=== PATIENT | female | born 1990 | race Two or more races ===

== ENCOUNTER 2018-05-09 20:44 | Emergency (ER) | payer OTHER ==
[~2018-05-09] VITALS: Ht 160 cm; Wt 49.9 kg
[~2018-05-09 20:44] MED LIST: LATUDA80 MG PO
--- NOTE | 2018-05-09 20:46 | Emergency Room Report ---
History of Present Illness General Chief Complaint: General Complaint Source: Patient Present Illness HPI Patient is a 28-year-old female presented after increased anxiety. Patient reports having a prior history of bipolar disorder. She reports having increased anxiety. She states she takes limited irregularly. She reports taking intermittently Adderall. She denies any fever or chest discomfort. She reports having symptoms of symptoms in the past. Allergies: Coded Allergies: No Known Allergies (Unverified , 05/09/18) Patient History Last Menstrual Period: 04/09/2018 Now: No : 1 Para: 0 Reviewed Nursing Documentation: PMH: Agreed; PSxH: Agreed Nursing Documentation-PMH Past Medical History: No History, Except For History Of Psychiatric Problem: Yes - anxiety, bipolar Review of Systems All Other Systems: negative except mentioned in HPI Physical Exam Vital Signs Date Time Temp Pulse Resp B/P (MAP) Pulse Ox O2 Delivery O2 Flow Rate FiO2 05/09/18 20:37 97.9 80 16 127/88 100 Room Air General Appearance: well appearing, no apparent distress, alert, GCS 15 Head: normocephalic, atraumatic ENT: hearing grossly normal, normal voice Neck: full range of motion, supple Respiratory: no respiratory distress, speaking full sentences Gastrointestinal: normal inspection, normal bowel sounds, non tender, soft, no mass Musculoskeletal: normal inspection, no calf tenderness Neurologic: normal inspection, alert, oriented x3, responsive, council member III-XII nml as tested, motor strength/tone normal, normal gait, other - anxious Psychiatric: judgement/insight normal, memory normal, no suicidal/homicidal ideation, depressed affect Skin: no rash Medical Decision Making Diagnostic Impression: Primary Impression: Anxiety ER Course Patient presented for increased anxiety. Differential diagnosis included was not limited to anxiety, hyperthyroidism, hypoglycemia, substance abuse, anemia among others. Patient has a benign exam and does not appear to require any further imaging or laboratory testing at this time. The urinalysis and urine test were ordered. The patient does not appear to have any acute psychiatric history of this time I requiring inpatient management. Patient was given medications for anxiety while in the emergency department. The patient has a psychiatrist to follow-up with for further medications as needed.The patient advised contact her psychiatrist for further evaluation and to return if she began having any suicidal thoughts or thoughts of harming others or other concerns. Last Vital Signs Date Time Temp Pulse Resp B/P (MAP) Pulse Ox O2 Delivery O2 Flow Rate FiO2 05/09/18 20:37 97.9 80 16 127/88 100 Room Air Status: improved Disposition: HOME, SELF-CARE Condition: Stable Ruben Bender MD May 09, 2018 20:46
[2018-05-09] MEDS ORDERED: LORazepam 1mg tab ORAL ONE (21:00)
[2018-05-09 22:01] VITALS: BP 114/63
[2018-05-09 22:06] VITALS: BP 114/63
== END 2018-05-09 22:08 | disposition home or self-care (01) ==
LOC: EDBD 20:44 → EMR 21:12
DX: F41.9 Anxiety disorder, unspecified (principal); F31.9 Bipolar disorder, unspecified
CPT/HCPCS: 81025; 99283

== ENCOUNTER 2018-06-07 18:12 | Emergency (ER) | payer OTHER ==
[~2018-06-07] VITALS: Ht 160 cm; Wt 47.6 kg
[2018-06-07 18:28] VITALS: BP 111/73
[2018-06-07] MEDS ORDERED: Ipratropium 0.02% Inh Soln 2.5ml UD HHN ONE (18:45)
[2018-06-07] MEDS ORDERED: Albuterol ud Inhalation HHN ONE (18:45)
[2018-06-07] MEDS ORDERED: ALBUTEROL SULF8.5 GM INH (19:16)
[2018-06-07] MEDS ORDERED: PREDNISONE20 MG ORAL (19:16)
[2018-06-07 19:27] VITALS: BP_SYST 111; BP_SYST 112; BP_DIAS 73; BP_DIAS 78
--- NOTE | 2018-06-07 20:11 | Emergency Room Report ---
History of Present Illness General Chief Complaint: General Complaint Source: Patient Present Illness HPI 28-year-old female presents ED complaining of difficulty breathing 2 days. States her chest feels tight. States that she used a hookah 2 days ago and states that drugs may been put in the hookah. States she felt initially "high" and states that yesterday she felt like she was withdrawing. She is concerned that she may from the drugs. Denies chest pain. Denies fevers or chills. Denies cough. No other aggravating relieving factors. Denies any other associated symptoms Allergies: Coded Allergies: No Known Allergies (Unverified , 05/09/18) Patient History Past Medical History: psych hx Past Surgical History: none Pertinent Family History: none Social History: Denies: smoking, alcohol use, drug use Last Menstrual Period: 04/27/2018 Now: No Immunizations: UTD Reviewed Nursing Documentation: PMH: Agreed; PSxH: Agreed Nursing Documentation-PMH Past Medical History: No History, Except For History Of Psychiatric Problem: Yes - bipolar, ADD Review of Systems All Other Systems: negative except mentioned in HPI Physical Exam Vital Signs Date Time Temp Pulse Resp B/P (MAP) Pulse Ox O2 Delivery O2 Flow Rate FiO2 06/07/18 18:15 98.2 82 18 111/73 96 Room Air 06/07/18 18:50 21 Sp02 EP Interpretation: reviewed, normal General Appearance: no apparent distress, alert, GCS 15, non-toxic Head: normocephalic Eyes: bilateral eye normal inspection, bilateral eye PERRL ENT: hearing grossly normal, normal pharynx, no angioedema, normal voice Neck: normal inspection Respiratory: decreased breath sounds, wheezing Cardiovascular #1: regular rate, rhythm, no edema Gastrointestinal: normal inspection Rectal: deferred Genitourinary: normal inspection Musculoskeletal: back normal, gait/station normal, normal range of motion, non- tender Neurologic: alert, oriented x3, responsive, motor strength/tone normal, sensory intact, speech normal Psychiatric: anxious Skin: normal inspection Lymphatic: normal inspection Medical Decision Making Diagnostic Impression: Primary Impression: Bronchitis ER Course Hospital Course 28-year-old female presents to ED complaining of chest tightness after smoking hookah Differential diagnoses include: URI, bronchitis, asthma/COPD, pneumonia Clinical course Patient placed on stretcher. After initial history and physical I ordered prednisone and nebulizer treatment. Upon reassessment patient states her breathing has improved. Improved breath sounds on exam. Consistent with bronchitis. Safe for discharge. We'll prescribe inhaler and steroids. Diagnosis - bronchitis Stable and discharged home with prescriptions for Rx prednisone, albuterol. Instructed to followup with PMD. Return to ED if symptoms recur or worsen Last Vital Signs Date Time Temp Pulse Resp B/P (MAP) Pulse Ox O2 Delivery O2 Flow Rate FiO2 06/07/18 19:27 98.2 68 20 111/73 99 Room Air 21 Status: improved Disposition: HOME, SELF-CARE Condition: Stable Scripts Prednisone* (PREDNISONE*) 20 Mg Tablet 40 MG ORAL DAILY, #10 TAB Prov: Bart Simental MD 06/07/18 Albuterol Sulfate* (ALBUTEROL SULFATE MDI*) 8.5 Gm Hfa.aer.ad 2 PUFF INH Q6H, #1 EA 0 Refills Prov: Bart Simental MD 06/07/18 Referrals: [facility],REFERRING (PCP) Patient Instructions: Acute Bronchitis, [id number] Bart Simental MD Jun 07, 2018 20:11
== END 2018-06-07 19:27 | disposition home or self-care (01) ==
LOC: EMR 18:52
DX: J40 Bronchitis, not specified as acute or chronic (principal); R07.89 Other chest pain; F98.8 Other specified behavioral and emotional disorders with onset usually occurring in childhood and adolescence
CPT/HCPCS: 94640; 94664; 99284

== ENCOUNTER 2018-12-24 02:52 | Inpatient (IN) | payer OTHER ==
[~2018-12-24] VITALS: Ht 157.5 cm; Wt 54.4 kg
[2018-12-24] VITALS (7 sets, daily range): BP systolic 107–149; BP diastolic 70–84
[~2018-12-24 02:52] MED LIST changes: +ALBUTEROL SULF8.5 GM INH; +PREDNISONE20 MG ORAL
--- NOTE | 2018-12-24 02:56 | NUR ---
ED Nurse Note: Pt was BIBA from home, c/o drug over dose, According to EMS, pt took 10n pills of Adderall and just wanted to calm herself down . Pt is A/O X 4. Hr 114 at this time. waiting for orders.
[2018-12-24] MEDS ORDERED: LORazepam Inj 2mg/ml 1ml IV ONE ×2 (03:00→07:30)
--- NOTE | 2018-12-24 03:01 | Emergency Room Report ---
History of Present Illness General Source: Patient Present Illness HPI Patient is a 28-year-old female brought in by EMS after increased agitation. Patient reports having overdosed on Adderall as well as crystal meth. She states this happened earlier in the day. Patient denies any other complaints other than anxiety. She states that she is "barely breathing". Patient was brought in by [facility]. She denies any or allergies to medications Allergies: Coded Allergies: No Known Allergies (Unverified , 05/09/18) Patient History Past Medical History: see triage record Reviewed Nursing Documentation: PMH: Agreed; PSxH: Agreed Review of Systems All Other Systems: negative except mentioned in HPI Physical Exam Sp02 EP Interpretation: reviewed, normal General Appearance: normal inspection, well appearing, no apparent distress, alert, GCS 15 Head: atraumatic ENT: normal ENT inspection, hearing grossly normal, normal voice Neck: normal inspection, full range of motion, supple, no bony tend Respiratory: normal inspection, lungs clear, normal breath sounds, no respiratory distress, no retraction, no wheezing Cardiovascular #1: regular rate, rhythm, no edema Gastrointestinal: normal inspection, normal bowel sounds, non tender, soft, no guarding, no hernia Genitourinary: no CVA tenderness Musculoskeletal: normal inspection, back normal, normal range of motion Neurologic: normal inspection, alert, oriented x3, responsive, bead wire taper III-XII nml as tested, motor strength/tone normal, speech normal, other - motor agitation Psychiatric: mood/affect normal, anxious Skin: normal inspection, normal color, no rash Medical Decision Making Diagnostic Impression: Primary Impression: Substance abuse Additional Impressions: Overdose Hyponatremia ER Course Patient presented for increased agitation. Differential diagnosis include was not limited to substance abuse, anxiety, alcohol withdrawal among others. Because of complexity of patient's case laboratory testing and imaging studies were ordered. Patient was noted to be markedly agitated. Reportedly she had overdosed on Adderall. Patient does also report that she did crystal meth earlier in the day. Patient reports having prior history of anxiety. She was given IV Ativan. Poison control was contacted for advised management.Patient was noted to be hyponatremic on laboratory testing. She was given IV antiemetics after episode of vomiting. Dr. Tuan Marquez was contacted for inpatient management. Dr. Chávez was contacted for psychiatric consult. Labs Test 12/24/18 03:26 12/24/18 06:30 White Blood Count 9.1 K/UL (4.8-10.8) Red Blood Count 4.68 M/UL (4.20-5.40) Hemoglobin 14.0 G/DL (12.0-16.0) Hematocrit 39.4 % (37.0-47.0) Mean Corpuscular Volume 84 FL (80-99) Mean Corpuscular Hemoglobin 29.9 PG (27.0-31.0) Mean Corpuscular Hemoglobin Concent 35.5 G/DL (32.0-36.0) Red Cell Distribution Width 12.0 % (11.6-14.8) Platelet Count 266 K/UL (150-450) Mean Platelet Volume 7.8 FL (6.5-10.1) Neutrophils (%) (Auto) 84.2 % (45.0-75.0) Lymphocytes (%) (Auto) 9.8 % (20.0-45.0) Monocytes (%) (Auto) 5.5 % (1.0-10.0) Eosinophils (%) (Auto) 0.1 % (0.0-3.0) Basophils (%) (Auto) 0.5 % (0.0-2.0) Sodium Level 123 MMOL/L (136-145) Potassium Level 3.3 MMOL/L (3.5-5.1) Chloride Level 86 MMOL/L (98-107) Carbon Dioxide Level 23 MMOL/L (21-32) Anion Gap 14 mmol/L (5-15) Blood Urea Nitrogen 3 mg/dL (7-18) Creatinine 0.8 MG/DL (0.55-1.30) Estimat Glomerular Filtration Rate > 60 mL/min (>60) Glucose Level 125 MG/DL (74-106) Calcium Level 8.8 MG/DL (8.5-10.1) Total Bilirubin 0.5 MG/DL (0.2-1.0) Aspartate Amino Transf (AST/SGOT) 22 U/L (15-37) Alanine Aminotransferase (ALT/SGPT) 16 U/L (12-78) Alkaline Phosphatase 63 U/L (46-116) Total Protein 7.2 G/DL (6.4-8.2) Albumin 4.3 G/DL (3.4-5.0) Globulin 2.9 g/dL Albumin/Globulin Ratio 1.5 (1.0-2.7) Salicylates Level 1.3 ug/mL (2.8-20) Acetaminophen Level < 2 MCG/ML (10-30) Serum Alcohol < 3 mg/dL Urine HCG, Qualitative Negative (NEGATIVE) Status: improved Disposition: ADMITTED INPATIENT Condition: Stable Ruben Bender MD Dec 24, 2018 03:01
--- NOTE | 2018-12-24 03:07 | NUR ---
ED Nurse Note: Spoke with Tang at Poison Control: Ampehtamine/stimulant response - hypertension, tachycardia, psychotic episodes. Worsening symptoms: Cardiotoxicicty; seizures - can treat with benzos. Pt needs to be monitored for a minimum of 12 hours.
--- NOTE | 2018-12-24 03:10 | NUR ---
ED Nurse Note: Pt was moved to Bed 2# for base brander. Endorsed to Adrianna /RN for continue care.
[2018-12-24 03:46] LABS: BASOPHILS % (AUTO) 0.5 % (0.0-2.0); EOSINOPHILS % (AUTO) 0.1 % (0.0-3.0); HEMATOCRIT 39.4 % (37.0-47.0); LYMPHOCYTES % (AUTO) 9.8 % (20.0-45.0); MEAN CORPUSCULAR VOLUME 84 FL (80-99); MONOCYTES % (AUTO) 5.5 % (1.0-10.0); NEUTROPHILS % (AUTO) 84.2 % (45.0-75.0); PLATELET COUNT 266 K/UL (150-450); RED BLOOD COUNT 4.68 M/UL (4.20-5.40); WHITE BLOOD COUNT 9.1 K/UL (4.8-10.8)
[2018-12-24 04:10] LABS: ANION GAP 14 mmol/L (5-15); BLOOD UREA NITROGEN 3 mg/dL (7-18); CALCIUM 8.8 MG/DL (8.5-10.1); CARBON DIOXIDE 23 MMOL/L (21-32); CHLORIDE 86 MMOL/L (98-107); CREATININE 0.8 MG/DL (0.55-1.30); POTASSIUM 3.3 MMOL/L (3.5-5.1); SODIUM 123 MMOL/L (136-145)
[2018-12-24 04:29] LABS: ALANINE AMINOTRANSFERASE 16 U/L (12-78); ALBUMIN 4.3 G/DL (3.4-5.0); ALBUMIN/GLOBULIN RATIO 1.5 (1.0-2.7); ALKALINE PHOSPHATASE 63 U/L (46-116); ASPARTATE AMINO TRANSFERASE 22 U/L (15-37); BILIRUBIN,TOTAL 0.5 MG/DL (0.2-1.0)
--- NOTE | 2018-12-24 05:02 | NUR ---
ED Nurse Note: Pt vomitted clear liquids, Dr Bender aware
[2018-12-24] MEDS ORDERED: NKM (06:40)
[2018-12-24 06:45] LABS: APPEARANCE,URINE CLEAR; BILIRUBIN, URINE NEGATIVE (NEGATIVE); COLOR,URINE PALE YELLOW; GLUCOSE, URINE (UA) NEGATIVE (NEGATIVE); KETONES,URINE 3+ (NEGATIVE); LEUKOCYTE ESTERASE ,URINE 3+ (NEGATIVE); NITRITE,URINE NEGATIVE (NEGATIVE); PH,URINE 8 (4.5-8.0); PROTEIN,URINE NEGATIVE (NEGATIVE); UROBILINOGEN,URINE NORMAL MG/DL (0.0-1.0)
--- NOTE | 2018-12-24 07:13 | NUR ---
HAND-OFF: Report given to FLORENCIA Correa.
--- NOTE | 2018-12-24 07:38 | NUR ---
ED Nurse Note: pt care assummed. pt a/ox4 states she feels like her heart is racing. md aware and repeat dose of ativan given. pt aware to be admitted for further observation. NSR no ectopy noted on monitor pt without seizure activity. pt given reassurance and plan of care when she relates anxiety. sitter at bs. pt denies SI/Hi.
[2018-12-24] MEDS ORDERED: CABERGOLINE0.5 MG PO (07:58)
[2018-12-24] MEDS ORDERED: TRILEPTAL600 MG PO (07:58)
[2018-12-24] MEDS ORDERED: ADDERAL20 MG ORAL (07:58)
[2018-12-24] MEDS ORDERED: VYVANSE70 MG ORAL (07:58)
--- NOTE | 2018-12-24 07:58 | NUR ---
ED Nurse Note: pt belongings list done by rn. pt noted to have 4 at home medications in her purse. removed from pt and inventoried on pharmacy hold bag and added to pt med reconcilliation. pt aware meds removed from her and sent to pharmacy bag receipt [id number].
--- NOTE | 2018-12-24 08:14 | NUR ---
ED Nurse Note: report given to 2east. awaiting pt. pt assisted to brp with sitter assisting her. denies dizziness.
--- NOTE | 2018-12-24 12:15 | History and Physical Report ---
DATE OF ADMISSION: 12/24/2018 REASON FOR ADMISSION: Unintentional overdose. HISTORY OF PRESENT ILLNESS: The patient is a 28-year-old female, reportedly overdose on Adderall as well as crystal meth. The patient denies any other complaints. She was noted to be hyponatremic. The patient was somewhat agitated, brought in by ambulance, overall stable in the emergency room and requires observation. PAST MEDICAL HISTORY: Essentially negative. MEDICATIONS: As above. SOCIAL HISTORY: Nonsmoker. Not working currently. REVIEW OF SYSTEMS: Otherwise negative. PHYSICAL EXAMINATION: GENERAL: A well-developed female, otherwise comfortable. VITAL SIGNS: Essentially stable. Heart rate was up to 112, now 87. HEENT: Negative. NECK: Supple. LUNGS: Clear. CARDIAC: S1 and S2. Regular rate and rhythm. ABDOMEN: Soft, nontender, nondistended. EXTREMITIES: No edema. NEUROLOGIC: Nonfocal. LABORATORY DATA: Reviewed, notable for sodium 123, potassium 3.3. Urine toxicology screen positive for amphetamines. IMPRESSION: Reported unintentional Adderall overdose as well as crystal meth use, polysubstance abuse, hyponatremia. RECOMMENDATIONS: Normal saline with hydration. Psychiatric clearance. Follow up sodium levels and discharge once improved. Tuan Marquez M.D. DR: SHEA JOB#: [id number] CC:
--- NOTE | 2018-12-24 12:17 | NUR ---
CASE MANAGEMENT:REVIEW 28 YR OLD FEMALE BIBA FROM HOME CC; TOOK 10 ADDERALL PILLS. OVERDOSE SI: HYPONATREMIA. OVERDOSE 98.0 112 18 149/84 99% ON RA NA-123 K-3.3 URINE(+) AMPHETAMINES IS: 500CC NS BOLUS IV ATIVAN 1L NS BOLUS : TO TELEMETRY INTERQUAL CRITERIA MET
--- NOTE | 2018-12-24 15:57 | NUR ---
*-* NO INSURANCE INFORMATION IN THE BAR TO SEND CLINICALS *-*
[2018-12-24] MEDS: LORazepam 1mg tab ORAL PRN (18:07)
--- NOTE | 2018-12-24 18:10 | NUR ---
NURSE NOTES: IV found next to patient. No bleeding from IV site. Site cleaned and covered. Will attempt IV after Pt is calm.
--- NOTE | 2018-12-24 19:50 | NUR ---
OBTAINED REPORT FROM BRI DON .
--- NOTE | 2018-12-24 20:00 | NUR ---
HAND-OFF: Report given to FLORENCIA Oliva. Patient in stable condition.
[2018-12-25] VITALS: BP 110/74
--- NOTE | 2018-12-25 01:30 | Consultation ---
DATE OF CONSULTATION: 12/24/2018 CONSULTING PHYSICIAN: Xiomara Chávez M.D. REFERRING PHYSICIAN: Tuan Marquez M.D. HISTORY OF PRESENT ILLNESS: This is a 28-year-old female with a history of Adderall dependence, anxiety, and depression, who has been admitted to the hospital after she overdosed on Adderall as well as crystal meth. The patient has been mixing the drugs with alcohol and apparently during the evaluation, the patient was . She had psychomotor agitation, irritable, and at some point, became angry when I was asking about her psychiatrist and his information. The patient denied any suicidal thoughts. The patient stated that this was an accidental overdose. The patient stated that she has been on Adderall for years. PAST PSYCHIATRIC HISTORY: Anxiety and depression. PAST MEDICAL HISTORY: Nonsignificant. ALLERGIES: No known drug allergies. SUBSTANCE USE HISTORY: According to the record, methamphetamine and Adderall and alcohol abuse. MENTAL STATUS EXAMINATION: The patient is alert, oriented times self, place, situation, and date. The patient had psychomotor agitation and involuntary contraction of her face and extremities. Mood was angry. Affect was constricted with congruent mood. Thought process was concrete. Thought content, no suicidal or homicidal ideations. No auditory or visual hallucinations. Insight and judgment is poor. ASSESSMENT: [place] I Methamphetamine dependence. [place] II Deferred. [place] III As above. [place] IV Low. [place] V 50 PLAN: 1. The patient is not an imminent danger to self or others. 2. Contacted and left a message for her psychiatrist at [facility], . He did not return my phone call. The patient was provided with doctor's phone number. 3. The patient was started on Ativan p.r.n. 4. The patient may be discharged after medically cleared. Xiomara Chváez M.D. DR: FREIDA JOB#: [id number] CC:
[2018-12-25 04:00] VITALS: BP 104/61
[2018-12-25 06:35] LABS: BASOPHILS % (AUTO) 1.7 % (0.0-2.0); EOSINOPHILS % (AUTO) 0.9 % (0.0-3.0); HEMATOCRIT 39.2 % (37.0-47.0); HEMOGLOBIN 13.5 G/DL (12.0-16.0); MEAN CORPUSCULAR VOLUME 86 FL (80-99); MONOCYTES % (AUTO) 8.2 % (1.0-10.0); NEUTROPHILS % (AUTO) 55.1 % (45.0-75.0); PLATELET COUNT 269 K/UL (150-450); RED BLOOD COUNT 4.55 M/UL (4.20-5.40); RED CELL DISTRIBUTION WIDTH 12.9 % (11.6-14.8); WHITE BLOOD COUNT 5.3 K/UL (4.8-10.8)
--- NOTE | 2018-12-25 07:10 | NUR ---
HAND-OFF: REPORT GIVEN TO HERNANDEZ DON. PT RESTING COMFORTABLY IN BED FREE FROM APPARENT DISTRESS.
[2018-12-25 07:13] LABS: ALANINE AMINOTRANSFERASE 15 U/L (12-78); ALBUMIN 3.9 G/DL (3.4-5.0); ALBUMIN/GLOBULIN RATIO 1.4 (1.0-2.7); ALKALINE PHOSPHATASE 55 U/L (46-116); ANION GAP 11 mmol/L (5-15); ASPARTATE AMINO TRANSFERASE 22 U/L (15-37); BILIRUBIN,TOTAL 0.4 MG/DL (0.2-1.0); BLOOD UREA NITROGEN 3 mg/dL (7-18); CALCIUM 8.7 MG/DL (8.5-10.1); CARBON DIOXIDE 21 MMOL/L (21-32); CHLORIDE 102 MMOL/L (98-107); CREATININE 0.6 MG/DL (0.55-1.30); POTASSIUM 3.6 MMOL/L (3.5-5.1); SODIUM 134 MMOL/L (136-145)
--- NOTE | 2018-12-25 07:44 | NUR ---
NURSE NOTES: Received report from FLORENCIA Oliva. Pt in bed, awake, talkative, complaining of nausea, discussed giving Zofran and provided pt with Saltine crackers, pt A/Ox4, bed in lowest position, call light within reach.
--- NOTE | 2018-12-25 08:28 | NUR ---
NURSE NOTES: 0800: Administered Zofran to pt as she states she is feeling "nauseous" RN asked pt about feelings of anxiety. pt stated "I dont feel anxious now, I am okay." Administered scheduled morning medication. 08: FLORENCIA Mancia notified primary RN pt was outside her room stating she needs to get going. 08: RN in pt's room. Pt states " I need to get going, I am feeling fine. I have been here for a few days now and I am feeling better." RN discussed plan of care with pt and will notify Dr. Marquez about pt asking to go home. Pt agreed to wait for Dr. Marquez to order DC. pt asked about getting anti-anxiety medications prescribed at discharged. RN notified Dr. Chávez of pt's request for DC meds. 829: Dr. Chávez stated "no benzodiazepine for her upon DC. PT needs to see her psychiatrist" Pt again out of room stating "I just want to be discharged and go home. RN Notified Dr. Marquez of pt's request for discharge.
[2018-12-25] MEDS: LORazepam 1mg tab ORAL PRN (09:36)
--- NOTE | 2018-12-25 10:41 | NUR ---
Social Work This SW received a consult due to substance abuse. This SW met with patient who explains she lives alone while her mother (Gaby Mckeon: [phone]) is assisting her financially (does not work, nor has applied for disability). Patient admitted to Meth abuse prior to this admission, stating "I only use it seldom." Patient denied any suicidal ideations, while admitting to a history of anxiety (Nursing reported patient has history of Bipolar Disorder). Patient is willing to follow up with a Psychiatrist outpatient (resources provided). This SW provided education regarding the negative effects of substance abuse (Meth) and encouraged support groups, as needed. Patient plans to discharge today and has been cleared by Psychiatry. No other needs or concerns; patient requested a cab voucher to home, does not want her mother notified.
--- NOTE | 2018-12-25 10:47 | NUR ---
NURSE NOTES: Reviewed all discharge paperwork with patient. Pt signed all discharge paperwork and belongings list. Returned home medications to patient that were stored in pharmacy. Pt was provided mental health resource information by park worker. Pt was provided phone numbers for taxi cabs and will contact for transportation home. IV removed intact, telemetry box removed. RN discussed at length the importance and Dr. Chávez's recommendation of seeing psychiatrist as soon as possible. Pt states "i dont see him until next month, he is really expensive, like $250." RN discussed importance of seeing psychiatrist as soon as possible due to recent overdose. Pt verbalized understanding.
--- NOTE | 2018-12-25 11:07 | NUR ---
NURSE NOTES: Pt discharged with all belongings and home medications. Pt ambulatory and medically and psychiatrically stable for discharge. ID band removed.
--- NOTE | 2018-12-25 14:12 | NUR ---
*-* INSURANCE *-* ALL CLINICALS AND REVIEWS HAVE BEEN FAXED TO: [employer] NO MGR ASSIGNED AT THIS TIME PLEASE FAX THE REVIEW/CLINICAL P- [phone] F- [phone]....REVIEW & CLINICAL
--- NOTE | 2018-12-26 00:30 | Progress Note ---
DATE: 12/25/2018 SUBJECTIVE: The patient is doing much better. Less anxiety. The patient is not suicidal or homicidal. The patient will be following up with her psychiatrist outside of the hospital. The patient has a history of dependence to methamphetamine. MENTAL STATUS EXAMINATION: The patient is alert and oriented times self, place, and situation. Mood is anxious. Affect is constricted. Congruent mood. Thought process is concrete. Thought content, no suicidal or homicidal ideations. ASSESSMENT: Depression. PLAN: 1. We will continue current medications. 2. Provide the patient with reality orientation and supportive therapy. 3. The patient is not an imminent danger to self or others. Xiomara Chávez M.D. DR: SHWETHA JOB#: [id number] CC:
--- NOTE | 2018-12-26 22:02 | Discharge Summary ---
Discharge Summary Discharge Summary _ DATE OF ADMISSION: 12/24/2018 DATE OF DISCHARGE: 12/25/2018 DISCHARGED BY: Dr. Marquez REASON FOR ADMISSION: 28 years old female with essentially negative past medical history, was brought by business rules analyst with increased agitation. Patient reported having overdose on Adderall and crystal meth, which happened earlier that day. Patient denied other complaints, except anxiety. Vital signs revealed tachycardia 112, blood pressure 149/84, pulse oximetry was stable on room air, no fever. Upon evaluation laboratory work-up revealed sodium 123, potassium 3.3. No leukocytosis. Urine toxicology screen was positive for amphetamine. Serum alcohol less than 3 Tylenol and salicylate levels negative. Urinalysis revealed +3 ketones, no evidence of UTI. Urine test was negative. Patient admitted for hyponatremia and unintentional Adderall and crystal meth overdose . CONSULTANTS: psychiatranuj Villarreal HOSPITAL COURSE: Patient admitted and started on IV hydration with normal saline. The next day sodium 134, potassium 3.6. Vital signs stabilized, initial tachycardia resolved Psychiatrist seen and evaluated patient. Reality orientation and supportive therapy provided. Per psychiatrist, patient was not at imminent danger to self or others and can be discharged when medically stable. Patient counseled on abstinence from illicit street drugs. Patient clinically stabilized and was ready for discharge home. Due to rapid and unexpected improvement in patient condition, patient was discharged in 1 day. FINAL DIAGNOSES: Acute hyponatremia -resolved Unintentional Adderall overdose Methamphetamine dependence Polysubstance abuse DISCHARGE MEDICATIONS: See Medication Reconciliation list. DISCHARGE INSTRUCTIONS: Patient was discharged home. Follow up with primary care provider in one week. I have been assigned to dictate discharge summary for this account. I was not involved in the patient's management. Jo Medrano NP Dec 26, 2018 22:02
--- NOTE | 2018-12-28 14:08 | NUR ---
*-* INSURANCE *-* DISCHARGE SUMMARY HAVE BEEN FAXED TO: [facility] NO MGR ASSIGNED AT THIS TIME PLEASE FAX THE REVIEW/CLINICAL P- [phone] F- [phone]....REVIEW & CLINICAL
== END 2018-12-25 11:27 | disposition home or self-care (01) | DRG 812 ==
LOC: EDBD 02:52 → EMR 03:27 → 2E 05:15 → EDBEDREQ 05:38
DX: T43.621A Poisoning by amphetamines, accidental (unintentional), initial encounter (principal); E87.1 Hypo-osmolality and hyponatremia; F15.20 Other stimulant dependence, uncomplicated; F19.10 Other psychoactive substance abuse, uncomplicated; F41.9 Anxiety disorder, unspecified; F32.9 Major depressive disorder, single episode, unspecified
CPT/HCPCS: 36415; 80053; 80307; 80329; 81003; 81025; 85025; 87086; 96361; 96374; 96376; 99284; J2405; J8499

== ENCOUNTER 2018-12-26 15:08 | Emergency (ER) | payer OTHER ==
[~2018-12-26] VITALS: Ht 157.5 cm; Wt 54.4 kg
[~2018-12-26 15:08] MED LIST changes: +ADDERAL20 MG ORAL; +CABERGOLINE0.5 MG PO; +NKM; +TRILEPTAL600 MG PO; +VYVANSE70 MG ORAL
[2018-12-26 15:12] VITALS: BP 111/79
--- NOTE | 2018-12-26 15:14 | NUR ---
ED Nurse Note: Pt came in for panick attack since today. No SI/HI. AOx4, VSS ananda. Will cont to monitor.
[2018-12-26] MEDS ORDERED: LORazepam 1mg tab ORAL ONE (15:30)
[2018-12-26 16:15] LABS: BASOPHILS % (AUTO) 3.2 % (0.0-2.0); EOSINOPHILS % (AUTO) 0.8 % (0.0-3.0); HEMATOCRIT 41.4 % (37.0-47.0); HEMOGLOBIN 14.5 G/DL (12.0-16.0); LYMPHOCYTES % (AUTO) 36.4 % (20.0-45.0); MEAN CORPUSCULAR VOLUME 84 FL (80-99); MONOCYTES % (AUTO) 7.8 % (1.0-10.0); NEUTROPHILS % (AUTO) 51.7 % (45.0-75.0); PLATELET COUNT 167 K/UL (150-450); RED BLOOD COUNT 4.93 M/UL (4.20-5.40); RED CELL DISTRIBUTION WIDTH 12.4 % (11.6-14.8)
[2018-12-26 16:19] LABS: ANION GAP 13 mmol/L (5-15); BLOOD UREA NITROGEN 4 mg/dL (7-18); CALCIUM 9.5 MG/DL (8.5-10.1); CARBON DIOXIDE 22 MMOL/L (21-32); CHLORIDE 101 MMOL/L (98-107); CREATININE 0.6 MG/DL (0.55-1.30); POTASSIUM 3.9 MMOL/L (3.5-5.1); SODIUM 136 MMOL/L (136-145)
[2018-12-26 16:24] LABS: ALANINE AMINOTRANSFERASE 17 U/L (12-78); ALKALINE PHOSPHATASE 65 U/L (46-116); ASPARTATE AMINO TRANSFERASE 36 U/L (15-37); BILIRUBIN,TOTAL 0.4 MG/DL (0.2-1.0); CREATINE KINASE 167 U/L (26-308)
--- NOTE | 2018-12-26 16:24 | Emergency Room Report ---
History of Present Illness General Chief Complaint: General Complaint Source: Patient Present Illness HPI 28-year-old female with history of ADHD and anxiety brought in by the paramedics complaining of panic attack x1 day. Patient reports that she was sitting at home having an argument with her parents and she started thinking about hurting herself however no plan. Patient denies any suicidal ideation or homicidal ideation at this point she also reports that she has not had any sleep in the past 48 hours. Patient has excessive jerking movements in the mouth and hands. Denies any drug use however when asked twice she does admit to taking methamphetamine. She has an extensive history on CURES of taking Vyvanse and amphetamine. Patient's last psychiatric appointment was a month ago and reports that her psychiatrist never gives her anything for anxiety. She has been at [facility] before for anxiety and medication overdose. Patient denies any other drug use, complains of palpitation, denies chest pain shortness of breath. Patient kept insisting on getting an Ativan and walking out of here into a voluntary facility for psychiatric care. Patient refuses to be tested for possible abnormalities however when convinced that we need to examine her she agrees. She then runs to the restroom urinates and does not give any urine sample I confronted her later and asked her that she needs to give us another urine sample no abdomen will be administered unless she allows for medical examination and cooperation as she is not in the right state of mind and judgment. She goes in to the restroom the second time 10 minutes later after the first time takes her water cup with her inner and comes back immediately with a container full of diluted urine. Possible mixing of the urine with water. She was given an order for NS bolus refuses to have IV access. Drinks more water and do some walks and with the nurse to the bathroom and gives more urine sample. Denies visual and auditory hallucination, mood changes, and all other associated symptoms. She kept saying that she has no one here with her but she will call over after she has given Ativan. Allergies: Coded Allergies: No Known Allergies (Unverified , 05/09/18) Patient History Past Medical History: see triage record Past Surgical History: unable to obtain Pertinent Family History: none Social History: Reports: drug use - meth Last Menstrual Period: 11/2018 Now: No Immunizations: UTD Reviewed Nursing Documentation: PMH: Agreed; PSxH: Agreed Nursing Documentation-PM Past Medical History: No Stated History Hx Cardiac Problems: No Hx Cancer: No Hx Gastrointestinal Problems: No Hx Neurological Problems: No Review of Systems All Other Systems: negative except mentioned in HPI Physical Exam Vital Signs Date Time Temp Pulse Resp B/P (MAP) Pulse Ox O2 Delivery O2 Flow Rate FiO2 12/26/18 15:04 98.1 90 18 108/74 (85) 100 Room Air Sp02 EP Interpretation: reviewed, normal General Appearance: mild distress, thin, other - Excess jerking movements and disheveled Head: normocephalic, atraumatic Eyes: left eye abnormal pupil ENT: normal ENT inspection, hearing grossly normal, normal pharynx, no angioedema Neck: normal inspection, full range of motion, supple Respiratory: normal inspection, chest non-tender, lungs clear, no retraction, no wheezing Cardiovascular #1: normal inspection, regular rate, rhythm, no murmur, normal capillary refill Cardiovascular #2: 2+ radial (R), 2+ radial (L) Gastrointestinal: normal inspection, soft Rectal: deferred Genitourinary: no CVA tenderness Musculoskeletal: normal inspection, back normal Neurologic: normal inspection, alert, oriented x3, responsive Psychiatric: memory normal, no suicidal/homicidal ideation, no delusions, anxious, other - Possible overdose on multiple drugs Suicide Risk Assessment: Suicidal Ideation: No - None at the emergency room Had intent to initiate attempt: No Pt's plan for suicide attempt: No Has means to complete attempt: No Skin: normal inspection, normal color, no rash Lymphatic: normal inspection, no adenopathy Medical Decision Making PA Attestation All my diagnosis and treatment plans were reviewed ad discussed with my supervising physician Dr. Arnett Diagnostic Impression: Primary Impression: Anxiety Additional Impression: Amphetamine abuse ER Course 28-year-old female with history of ADHD and anxiety brought in by the paramedics complaining of panic attack x1 day. Patient reports that she was sitting at home having an argument with her parents and she started thinking about hurting herself however no plan. Patient denies any suicidal ideation or homicidal ideation at this point she also reports that she has not had any sleep in the past 48 hours. Patient has excessive jerking movements in the mouth and hands. Denies any drug use however when asked twice she does admit to taking methamphetamine. She has an extensive history on CURES of taking Vyvanse and amphetamine. Patient's last psychiatric appointment was a month ago and reports that her psychiatrist never gives her anything for anxiety. She has been at [facility] before for anxiety and medication overdose. Patient denies any other drug use, complains of palpitation, denies chest pain shortness of breath. Patient kept insisting on getting an Ativan and walking out of here into a voluntary facility for psychiatric care. Patient refuses to be tested for possible abnormalities however when convinced that we need to examine her she agrees. She then runs to the restroom urinates and does not give any urine sample I confronted her later and asked her that she needs to give us another urine sample no abdomen will be administered unless she allows for medical examination and cooperation as she is not in the right state of mind and judgment. She goes in to the restroom the second time 10 minutes later after the first time takes her water cup with her inner and comes back immediately with a container full of diluted urine. Possible mixing of the urine with water. She was given an order for NS bolus refuses to have IV access. Drinks more water and do some walks and with the nurse to the bathroom and gives more urine sample. Denies visual and auditory hallucination, mood changes, and all other associated symptoms. She kept saying that she has no one here with her but she will call over after she has given Ativan. Ddx considered but are not limited to: generalized anxiety disorder, panic attack, depression with psycotic featurs, bipolar disorder, drug overdose Vital signs: are WNL, pt. is afebrile H&PE are most consistent with: Anxiety secondary to withdrawal from amphetamine , amphetamine abuse ORDERS: CBC, CMP, UA, tox screen, EKG, 0.5 Ativan ED INTERVENTIONS: 0.5 Ativan p.o. DISCHARGE: At this time pt. is stable for d/c to home. Will provide printed patient care instructions, and any necessary prescriptions. Care plan and follow up instructions have been discussed with the patient prior to discharge. Patient stable at time of discharge I gave her a list of free clinics in psychiatric facilities to going to have patient asked to voluntarily walked into the patient had no suicidal ideation at time of discharge laying my nurse was no weakness. Patient wanted more Ativan however explained to her that we cannot do at this point as she needs to have a better management such as SSRIs or SNRIs and since she is using amphetamine she cannot be on a daily dose of Ativan as well. Due to enlargement of her heart. Patient agrees and will leave. Patient has no suicidal or homicidal ideation at time of discharge. pos amphetamine EKG Diagnostic Results Rate: normal Rhythm: NSR ST Segments: no acute changes Last Vital Signs Date Time Temp Pulse Resp B/P (MAP) Pulse Ox O2 Delivery O2 Flow Rate FiO2 12/26/18 15:12 98.1 89 20 111/79 100 Room Air Disposition: HOME, SELF-CARE Condition: Stable Referrals: [facility],REFERRING (PCP) Patient Instructions: Generalized Anxiety Disorder, Stimulant Use Disorder- Amphetamines Additional Instructions: I gave you a list of psychiatric clinics that he can walk-in to and seek further help since you are using amphetamine and on Vyvanse taking Ativan on a regular basis can endanger you he need to be under psychiatric observation patient agreed to voluntarily go to psychiatric clinics. Your anxiety is exacerbated when you are going through withdrawal symptoms of amphetamine use. It is better to be on SSRI family or SNRI family such as Prozac, Zoloft, Wellbutrin, etc. patient has no suicidal and homicidal ideation at time of discharge Carmen Sanchez Dec 26, 2018 16:24
[2018-12-26 16:39] LABS: APPEARANCE,URINE CLEAR; BILIRUBIN, URINE NEGATIVE (NEGATIVE); COLOR,URINE PALE YELLOW; GLUCOSE, URINE (UA) NEGATIVE (NEGATIVE); KETONES,URINE 1+ (NEGATIVE); LEUKOCYTE ESTERASE ,URINE 3+ (NEGATIVE); NITRITE,URINE NEGATIVE (NEGATIVE); PH,URINE 6.5 (4.5-8.0); PROTEIN,URINE NEGATIVE (NEGATIVE); UROBILINOGEN,URINE NORMAL MG/DL (0.0-1.0)
[2018-12-26 17:04] VITALS: BP 113/82
[2018-12-26 17:21] VITALS: BP 111/79
--- NOTE | 2018-12-26 17:21 | NUR ---
ER DISCHARGE NOTE: Patient is cleared to be discharged per ERMD, pt is aox4, on room air, with stable vital signs. pt was given dc and prescription instructions, pt was able to verbalize understanding, pt id band and iv site removed without complications. pt is able to ambulate with steady gait. pt took all belongings.
== END 2018-12-26 17:28 | disposition home or self-care (01) ==
LOC: EDBD 15:08 → EMR 15:59
DX: F41.9 Anxiety disorder, unspecified (principal); F15.10 Other stimulant abuse, uncomplicated; F90.9 Attention-deficit hyperactivity disorder, unspecified type
CPT/HCPCS: 36415; 80053; 80307; 80329; 81003; 81025; 82550; 85025; 93005; 99284

== ENCOUNTER 2019-01-06 22:01 | Emergency (ER) | payer OTHER ==
[~2019-01-06] VITALS: Ht 160 cm; Wt 54.4 kg
--- NOTE | 2019-01-06 22:15 | NUR ---
ED Nurse Note: RECIEVED PT BIBA FROM HOME WITH C/O FEELING ANXIOUS AND PARANOID, PT IS AWAKE, ALERT AND ORIENTED X 4, PT DENEIS CP, NO SOB OR LABORED BREATHING NOTED, PT DID NOT DENY TAKING METH AND ALSO STATES SHE TOOK 10-15 ADERAL PILLS, DENIES BEING SUICIDAL JUST STATES "IT WAS STUPID, I SHOULDN'T OF DONE IT", PT IS VERY ANXIOUS AND STATING SHE DOES NTO WANT TO AND PLEASE HELP HER, PT WAS SEEN HERE 2 TIMES IN PAST WEEK FOR SAME S/S, PT IMMEDIATELY ASSISTED WITH GOWNING AND CARDIAC MONITORING, HAS PATENT SALINE LOCK IN RIGHT AC, INTACT AND PATENT, WILL CONTINUE TO CLOSELY MONITOR AND RESUME CARE ORDERED.
--- NOTE | 2019-01-06 22:20 | NUR ---
ED Nurse Note: Spoke with Don at [facility]: Stimulant effect. Symptomatic treatment. Cable Systems Installer; EKG; Fluid bolus; observe for six hours, and re-eval. Dr. Cast informed.
--- NOTE | 2019-01-06 22:29 | Emergency Room Report ---
History of Present Illness General Chief Complaint: Overdose Source: Patient, Medical Record, EMS Present Illness HPI This is a 28-year-old female with history of anxiety. She also has history of methamphetamine abuse. She presents with chief complaint of shortness of breath and feel like dying. She took about 10 tablets of Adderall throughout the day. This was not on purpose. Denies any fever chills but denies any nausea vomiting. Feels short of breath. [place] palpitation. Similar symptom in the past. No suicidal thoughts or homicidal thoughts. Allergies: Coded Allergies: No Known Allergies (Unverified , 05/09/18) Patient History Past Medical History: see triage record, old chart reviewed, psych hx Past Surgical History: none Pertinent Family History: none Social History: Reports: drug use Now: No Immunizations: other Reviewed Nursing Documentation: PMH: Agreed; PSxH: Agreed Nursing Documentation-PMH Past Medical History Deferred: Pt Cognitively Impaired Past Medical History: No Stated History Hx Cardiac Problems: No Hx Cancer: No Hx Gastrointestinal Problems: No Hx Neurological Problems: No Review of Systems Eye: Denies: eye pain, blurred vision ENT: Denies: ear pain, nose congestion, throat swelling Respiratory: Reports: shortness of breath; Denies: cough Cardiovascular: Reports: chest pain, palpitations Gastrointestinal: Denies: abdominal pain, diarrhea, nausea, vomiting Musculoskeletal: Denies: back pain, joint pain Skin: Denies: rash Neurological: Denies: headache, numbness Endocrine: Denies: increased thirst, increased urine Hematologic/Lymphatic: Denies: easy bruising All Other Systems: negative except mentioned in HPI Physical Exam Vital Signs Date Time Temp Pulse Resp B/P (MAP) Pulse Ox O2 Delivery O2 Flow Rate FiO2 01/06/19 22:03 97.9 105 24 140/100 (113) 99 Room Air Vitals unremarkable Sp02 EP Interpretation: reviewed, normal General Appearance: well appearing, no apparent distress, alert Head: normocephalic, atraumatic Eyes: bilateral eye PERRL, bilateral eye EOMI ENT: hearing grossly normal, normal pharynx Neck: full range of motion, supple, no meningismus Respiratory: chest non-tender, lungs clear, normal breath sounds Cardiovascular #1: regular rate, rhythm, no murmur Gastrointestinal: normal bowel sounds, non tender, no mass, no organomegaly, no bruit, non-distended Musculoskeletal: back normal, gait/station normal, normal range of motion Neurologic: alert, oriented x3 Psychiatric: anxious Skin: warm/dry Medical Decision Making Diagnostic Impression: Primary Impression: Anxiety Additional Impression: Substance abuse ER Course Patient presents with anxiety/panic attack worsened by her substance abuse. No evidence of suicidal thoughts homicidal thought. No criteria for 5150. Vitals stable. Better after Ativan. Will discharge home. This patient is a chronic risk of self injury due to poor impulse control, limited coping skills, and judgment intermittently impaired by intoxication. I believe that the available clinical evidence to suggest that these characteristics derived primarily from personality disorder and are likely very stable over time. Hospitalization would likely attenuate risk of self-harm only during assisted period, without lasting risk reduction. Serious self-harm , while possible, would likely be inadvertent, and because of impulsivity, and foreseeable. For these reasons, I do not believe hospitalization would provide meaningful reduction in risk of self-harm. Last Vital Signs Date Time Temp Pulse Resp B/P (MAP) Pulse Ox O2 Delivery O2 Flow Rate FiO2 01/06/19 22:03 97.9 105 24 140/100 (113) 99 Room Air Status: improved Disposition: HOME, SELF-CARE Condition: Stable Additional Instructions: Stop using drugs. Follow-up with your doctor in 7 days. Return if worse. Georges Cast MD Jan 06, 2019 22:29
[2019-01-06] MEDS ORDERED: LORazepam Inj 2mg/ml 1ml IV ONE (22:30)
[2019-01-06 23:00] VITALS: BP 133/71
--- NOTE | 2019-01-07 | NUR ---
ED Nurse Note: PT MEDICATED ORDERED, SLEEPING QUIETLY, V/S STABLE, WHEN AWKENED PT REMAINS PARANOID BUT IS LESS ANXIOUS, PT AMBULTED TO BATHROOM WITH STEADY GAIT, MD HAS ALREADY DISCHARGED, PT STATES WILL TAKE UBER HOME, WILL CONTINUE TO MONITOR AND D/C WHEN APPROPRIATE AND SAFE.
[2019-01-07 00:30] VITALS: BP 126/74
[2019-01-07 00:40] VITALS: BP 133/71
--- NOTE | 2019-01-07 00:40 | NUR ---
ED Nurse Note: PT CONTINUES TO REST IN BED, MD STATES TO DISCHARGE PT NOW AND OK TO TAKE UBER HOME, , PT AWAKENED, IS AWAKE, ALERT AND ORIENTED X 4 AND CONTINUES TO ELICIT PARANOID BEHAVIORS THINKING SHE WILL FROM MEDS INGESTED, MANY ATTEMPTS MADE TO CONSOLE PT, PT IS MBULATORY WIHT STEADY GAIT, PT ARRANGED OWN UBER ON PHONE, GIVEN F/U INFO AND AFTER CARE INSTRUCTIONS, PT LEAVING AND STATING SHE WILL COME BACK. NAD NOTED DURING D/C TO HOME.
== END 2019-01-07 00:40 | disposition home or self-care (01) ==
LOC: EDBD 22:01 → EMR 22:12
DX: F41.9 Anxiety disorder, unspecified (principal); F19.10 Other psychoactive substance abuse, uncomplicated
CPT/HCPCS: 96374; 99284

== ENCOUNTER 2019-01-07 01:22 | Emergency (ER) | payer OTHER ==
[~2019-01-07] VITALS: Ht 160 cm; Wt 54.4 kg
--- NOTE | 2019-01-07 01:22 | NUR ---
ED Nurse Note: PAtient tj hughes ride c/o nausea. patient was just discharged from this facility about an hour ago. patient is alert ando riented x4, ambulatory with a steady gait, VSS
[2019-01-07 01:29] VITALS: BP 124/84
--- NOTE | 2019-01-07 01:31 | Emergency Room Report ---
History of Present Illness General Chief Complaint: Behavioral Complaint Source: Patient Present Illness HPI This is a 28-year-old female with history of anxiety. She was just discharged from here. She was in a taxi home and felt nauseous and got anxious and called 911 again. She says she did not want to go home. Denies any suicidal thoughts homicidal thoughts. She was here earlier because she been taking Adderall. She has a history of methamphetamine abuse. Denies suicidal thoughts or homicidal thoughts. No hallucination or delusion. Allergies: Coded Allergies: No Known Allergies (Unverified , 05/09/18) Patient History Past Medical History: see triage record, old chart reviewed, psych hx Past Surgical History: none Pertinent Family History: none Social History: Reports: drug use Now: No Immunizations: other Reviewed Nursing Documentation: PMH: Agreed; PSxH: Agreed Nursing Documentation-PMH Past Medical History Deferred: Pt Cognitively Impaired Past Medical History: No Stated History Hx Cardiac Problems: No Hx Cancer: No Hx Gastrointestinal Problems: No Hx Neurological Problems: No Review of Systems Eye: Denies: eye pain, blurred vision ENT: Denies: ear pain, nose congestion, throat swelling Respiratory: Denies: cough, shortness of breath Cardiovascular: Denies: chest pain, palpitations Gastrointestinal: Denies: abdominal pain, diarrhea, nausea, vomiting Musculoskeletal: Denies: back pain, joint pain Skin: Denies: rash Neurological: Denies: headache, numbness Endocrine: Denies: increased thirst, increased urine Hematologic/Lymphatic: Denies: easy bruising All Other Systems: negative except mentioned in HPI Physical Exam Vital Signs Date Time Temp Pulse Resp B/P (MAP) Pulse Ox O2 Delivery O2 Flow Rate FiO2 01/07/19 01:22 98.1 79 18 124/84 (97) 99 Room Air Vitals normal Sp02 EP Interpretation: reviewed, normal General Appearance: well appearing, no apparent distress, alert Head: normocephalic, atraumatic Eyes: bilateral eye PERRL, bilateral eye EOMI ENT: hearing grossly normal, normal pharynx Neck: full range of motion, supple, no meningismus Respiratory: chest non-tender, lungs clear, normal breath sounds Cardiovascular #1: regular rate, rhythm, no murmur Gastrointestinal: normal bowel sounds, non tender, no mass, no organomegaly, no bruit, non-distended Musculoskeletal: back normal, gait/station normal, normal range of motion Psychiatric: mood/affect normal Skin: warm/dry Medical Decision Making Diagnostic Impression: Primary Impression: Anxiety Additional Impression: Substance abuse ER Course Patient is calm here. I see no need for give her Ativan that she has for here. She has a strong addiction problem. She is not suicidal or homicidal. No criteria for 5150. Last Vital Signs Date Time Temp Pulse Resp B/P (MAP) Pulse Ox O2 Delivery O2 Flow Rate FiO2 01/07/19 01:22 98.1 79 18 124/84 (97) 99 Room Air Status: improved Disposition: HOME, SELF-CARE Condition: Stable Patient Instructions: Self-Destructive Behavior Additional Instructions: Stop using drugs. See your doctor in 7 days. Return if worse. Georges Cast MD Jan 07, 2019 01:31
[2019-01-07 01:43] VITALS: BP 120/82
--- NOTE | 2019-01-07 01:43 | NUR ---
ER DISCHARGE NOTE: Patient is cleared to be discharged per ERMD, pt is aox4, on room air, with stable vital signs. pt was given dc and prescription instructions, pt was able to verbalize understanding, pt id band removed without complications. pt is able to ambulate with steady gait. pt took all belongings.
== END 2019-01-07 01:42 | disposition home or self-care (01) ==
LOC: EDBD 01:22 → EMR 01:35
DX: F41.9 Anxiety disorder, unspecified (principal); F19.10 Other psychoactive substance abuse, uncomplicated
CPT/HCPCS: 99281

== ENCOUNTER 2019-01-16 15:27 | Emergency (ER) | payer OTHER ==
[~2019-01-16] VITALS: Ht 160 cm; Wt 54.4 kg
--- NOTE | 2019-01-16 15:30 | NUR ---
ED Nurse Note: Patient biba from home c/o anxiety attack. patient states that snorted meth 2 hours ago. at time of arrival patient is asking for "medicine to calm me down" denies any pain. patient is alert and oriented x4, ambulatory with a steady gait. 110 on the heart rate with a blood pressure of 110/57
[2019-01-16 15:38] VITALS: BP 110/57
[2019-01-16] MEDS ORDERED: Propranolol 10mg tab ORAL ONE (15:45)
[2019-01-16 15:50] LABS: APPEARANCE,URINE CLOUDY; BILIRUBIN, URINE NEGATIVE (NEGATIVE); COLOR,URINE PALE YELLOW; GLUCOSE, URINE (UA) NEGATIVE (NEGATIVE); KETONES,URINE NEGATIVE (NEGATIVE); LEUKOCYTE ESTERASE ,URINE 3+ (NEGATIVE); NITRITE,URINE NEGATIVE (NEGATIVE); PH,URINE 6.5 (4.5-8.0); PROTEIN,URINE 2+ (NEGATIVE); UROBILINOGEN,URINE NORMAL MG/DL (0.0-1.0)
--- NOTE | 2019-01-16 15:56 | Emergency Room Report ---
History of Present Illness General Chief Complaint: General Complaint Source: Patient Present Illness HPI 28-year-old female with a history of methamphetamine abuse as well as Adderall intake here complaining of anxiety after taking methamphetamine 2 hours ago. Patient brought in by the paramedics complaining of extreme anxiety and keeps asking for anxiety medication. Patient denies SI and HI, has been here recently for similar symptoms and keep seeking Ativan IV. Patient reports that she did not follow-up with a primary care provider and she was told to do so last time as she does not believe that she has a problem. Patient refuses to go to inpatient psychiatric facility. Continues to use methamphetamine. Patient has extremely twitching however is compliant with treatment and responds correctly to all questions. Denies chest pain, shortness of breath, palpitation, abdominal pain, nausea vomiting or other associated symptoms. Allergies: Coded Allergies: No Known Allergies (Unverified , 05/09/18) Patient History Past Medical History: see triage record Past Surgical History: unable to obtain Pertinent Family History: unable to obtain Now: No Reviewed Nursing Documentation: PMH: Agreed; PSxH: Agreed Nursing Documentation-PMH Past Medical History: No History, Except For Hx Cardiac Problems: No Hx Cancer: No Hx Gastrointestinal Problems: No History Of Psychiatric Problem: Yes - Anxiety, Bipolar Hx Neurological Problems: No Review of Systems All Other Systems: negative except mentioned in HPI Physical Exam Vital Signs Date Time Temp Pulse Resp B/P (MAP) Pulse Ox O2 Delivery O2 Flow Rate FiO2 01/16/19 15:25 98.2 110 20 110/57 (74) 98 Room Air Sp02 EP Interpretation: reviewed, normal General Appearance: GCS 15, non-toxic, mild distress Head: normocephalic, atraumatic Eyes: bilateral eye normal inspection, bilateral eye PERRL ENT: normal ENT inspection, hearing grossly normal, normal pharynx Neck: normal inspection, full range of motion, supple Respiratory: normal inspection, lungs clear, no rhonchi, no wheezing Cardiovascular #1: normal inspection, normal peripheral pulses, no edema, no murmur, normal capillary refill Gastrointestinal: normal inspection, non tender, soft Genitourinary: no CVA tenderness Musculoskeletal: normal inspection, back normal, digits/nails normal Neurologic: normal inspection, alert, oriented x3 Psychiatric: judgement/insight normal, no suicidal/homicidal ideation, anxious , other - eye twiching, mouth tremor, Skin: no rash, palpation normal Lymphatic: normal inspection, no adenopathy Medical Decision Making PA Attestation All my diagnosis and treatment plans were reviewed ad discussed with my supervising physician Dr. Bender Diagnostic Impression: Primary Impression: Anxiety Additional Impressions: Drug-seeking behavior Methamphetamine abuse UTI (urinary tract infection) ER Course 28-year-old female with a history of methamphetamine abuse as well as Adderall intake here complaining of anxiety after taking methamphetamine 2 hours ago. Patient brought in by the paramedics complaining of extreme anxiety and keeps asking for anxiety medication. Patient denies SI and HI, has been here recently for similar symptoms and keep seeking Ativan IV. Patient reports that she did not follow-up with a primary care provider and she was told to do so last time as she does not believe that she has a problem. Patient refuses to go to inpatient psychiatric facility. Continues to use methamphetamine. Patient has extremely twitching however is compliant with treatment and responds correctly to all questions. Denies chest pain, shortness of breath, palpitation, abdominal pain, nausea vomiting or other associated symptoms. Ddx considered but are not limited to: generalized anxiety disorder, panic attack, depression with psycotic featurs, bipolar disorder, drug overdose Vital signs: are WNL, pt. is afebrile H&PE are most consistent with: Anxiety secondary to methamphetamine use, UTI, drug-seeking behavior ORDERS: EKG, UA, urine tox screen, urine , propranolol ED INTERVENTIONS: Propranolol DISCHARGE: At this time pt. is stable for d/c to home. Will provide printed patient care instructions, and any necessary prescriptions. Care plan and follow up instructions have been discussed with the patient prior to discharge. Patient to follow-up with her primary care provider and psychiatrist patient refuses to be sent to inpatient psychiatric hospital denies SI and HI patient repeatedly asked for IV Ativan as she wants to be fixed now and does not believe that has problem and is escorted out to the waiting room. Patient refuses IV fluids and is given water to take Positive leukocytes and white blood cells in urine EKG Diagnostic Results Rate: normal Rhythm: NSR ST Segments: no acute changes Last Vital Signs Date Time Temp Pulse Resp B/P (MAP) Pulse Ox O2 Delivery O2 Flow Rate FiO2 01/16/19 15:48 110 110/57 01/16/19 15:38 98.2 20 98 Room Air Disposition: HOME, SELF-CARE Condition: Stable Scripts Nitrofurantoin Monohyd/M-Cryst* (MACROBID 100 MG*) 100 Mg Capsule 100 MG ORAL EVERY 12 HOURS for 7 Days, #14 CAP Prov: Carmen Sanchez 01/16/19 Referrals: [facility],REFERRING (PCP) Patient Instructions: Finding Treatment for Addiction, Generalized Anxiety Disorder, Urinary Tract Infection, [id number] Additional Instructions: Since you are refusing to be sent to inpatient psychiatric facilities follow with your primary care provider for establishing a psychiatrist. Carmen Sanchez Jan 16, 2019 15:56
[2019-01-16] MEDS ORDERED: NITROFURANTOIN100 M2 ORAL (16:12)
--- NOTE | 2019-01-16 16:23 | NUR ---
ED Nurse Note: patient is requesting iv medications to "calm her down"
--- NOTE | 2019-01-16 16:25 | NUR ---
Charleen mcdaniel in EDM - 01/16/19 at 1648 by DAVE ED Nurse Note: pt went back from ct
[2019-01-16 16:30] VITALS: BP 115/62
--- NOTE | 2019-01-16 16:30 | NUR ---
ER DISCHARGE NOTE: Patient is cleared to be discharged per ERMD, pt is aox4, on room air, with stable vital signs. pt was given dc and prescription instructions, pt was able to verbalize understanding, pt id band removed without complications. pt is able to ambulate with steady gait. pt took all belongings. Patient was advised to stop abusing drugs. patient states that she was having a panic attack but able to speak full sentences, VSS upon discharge.
== END 2019-01-16 16:30 | disposition home or self-care (01) ==
LOC: EDBD 15:27 → EMR 15:48
DX: F41.9 Anxiety disorder, unspecified (principal); Z76.5 Malingerer [conscious simulation]; F15.10 Other stimulant abuse, uncomplicated; N39.0 Urinary tract infection, site not specified; F31.9 Bipolar disorder, unspecified
CPT/HCPCS: 80307; 81001; 81025; 87086; 93005; 99283

== ENCOUNTER 2019-01-17 00:46 | Emergency (ER) | payer OTHER ==
[~2019-01-17] VITALS: Ht 160 cm; Wt 56.7 kg
[~2019-01-17 00:46] MED LIST changes: +NITROFURANTOIN100 M2 ORAL
--- NOTE | 2019-01-17 00:49 | NUR ---
ED Nurse Note: TORSTEN RAHAT 67 FROM HOME C/O METH USE AND ETOH X 0030. RECENTLY SEEN AT [facility] [place] [facility] THIS MORNING FOR SAME COMPLAINT. Pt is AO x 4times, VSS, on room air no distress with current anxiety attack. ERMD seen Pt at bedside.
[2019-01-17] MEDS ORDERED: Haloperidol 5mg/ml Inj ONE (00:59)
[2019-01-17] MEDS ORDERED: Haloperidol 5mg/ml Inj IM ONE (01:00)
--- NOTE | 2019-01-17 01:05 | Emergency Room Report ---
History of Present Illness General Chief Complaint: Substance Abuse Source: Patient, Medical Record, EMS Present Illness HPI This is a 28-year-old female with his history of methamphetamine abuse and also anxiety. She is been here numerous times already. She called 911 with chief complaint of anxiety. No suicidal thoughts homicidal thought. She was here earlier this afternoon. She admits to using methamphetamine and felt anxious unable to sleep so she called 911. Here she is yelling wanting medication to calm her down. Denies any suicidal thoughts homicidal thought. Denies any hallucination or delusion. Allergies: Coded Allergies: No Known Allergies (Unverified , 05/09/18) Patient History Past Medical History: see triage record, old chart reviewed, psych hx Past Surgical History: other Pertinent Family History: none Social History: Reports: drug use; Denies: smoking Last Menstrual Period: UNK Now: No Immunizations: other Reviewed Nursing Documentation: PMH: Agreed; PSxH: Agreed Nursing Documentation-PMH Past Medical History: No History, Except For Hx Cardiac Problems: No Hx Cancer: No Hx Gastrointestinal Problems: No Hx Neurological Problems: No Review of Systems Eye: Denies: eye pain, blurred vision ENT: Denies: ear pain, nose congestion, throat swelling Respiratory: Denies: cough, shortness of breath Cardiovascular: Denies: chest pain, palpitations Gastrointestinal: Denies: abdominal pain, diarrhea, nausea, vomiting Musculoskeletal: Denies: back pain, joint pain Skin: Denies: rash Psychiatric: Reports: anxiety Neurological: Denies: headache, numbness Endocrine: Denies: increased thirst, increased urine Hematologic/Lymphatic: Denies: easy bruising All Other Systems: negative except mentioned in HPI Physical Exam Vital Signs Date Time Temp Pulse Resp B/P (MAP) Pulse Ox O2 Delivery O2 Flow Rate FiO2 01/17/19 00:43 98.6 90 22 127/76 (93) 99 Room Air Vitals normal Sp02 EP Interpretation: reviewed, normal General Appearance: well appearing, no apparent distress, alert Head: normocephalic, atraumatic Eyes: bilateral eye PERRL, bilateral eye EOMI ENT: hearing grossly normal, normal pharynx Neck: full range of motion, supple, no meningismus Respiratory: chest non-tender, lungs clear, normal breath sounds Cardiovascular #1: regular rate, rhythm, no murmur Gastrointestinal: normal bowel sounds, non tender, no mass, no organomegaly, no bruit, non-distended Musculoskeletal: back normal, gait/station normal, normal range of motion Neurologic: alert, oriented x3 Psychiatric: anxious Medical Decision Making Diagnostic Impression: Primary Impression: Anxiety Additional Impression: Substance abuse ER Course Patient with anxiety worsened by substance abuse. Not suicidal or homicidal. No criteria for 5150. This patient is a chronic risk of self injury due to poor impulse control, limited coping skills, and judgment intermittently impaired by intoxication. I believe that the available clinical evidence to suggest that these characteristics derived primarily from personality disorder and are likely very stable over time. Hospitalization would likely attenuate risk of self-harm only during residential period, without lasting risk reduction. Serious self-harm , while possible, would likely be inadvertent, and because of impulsivity, and foreseeable. For these reasons, I do not believe hospitalization would provide meaningful reduction in risk of self-harm. Last Vital Signs Date Time Temp Pulse Resp B/P (MAP) Pulse Ox O2 Delivery O2 Flow Rate FiO2 01/17/19 00:43 98.6 90 22 127/76 (93) 99 Room Air Status: improved Disposition: HOME, SELF-CARE Condition: Stable Patient Instructions: Substance Use Disorder Additional Instructions: Stop using drugs. Follow-up with your doctor in 7 days. Return if worse. Georges Cast MD Jan 17, 2019 01:05
[2019-01-17 01:07] VITALS: BP 127/76
[2019-01-17 02:32] VITALS: BP 124/74
--- NOTE | 2019-01-17 02:33 | NUR ---
ER Nurse Note: Pt asleep, calm, no signs of distress. Pt no longer yelling. All safety measures met; will continue to montior.
--- NOTE | 2019-01-17 03:35 | NUR ---
ER Nurse Note: Pt awake, ambulated to restroom with steady gait, no signs of distress, talks with clear speech. Pt stated she has a destinated address for discharge. All safety measures met; will continue to monitor.
[2019-01-17 03:41] VITALS: BP 128/80
[2019-01-17 05:42] VITALS: BP 120/78
[2019-01-17 05:50] VITALS: BP 120/78
--- NOTE | 2019-01-17 05:50 | NUR ---
ER Nurse Note: Pt seen, treated, medically cleared for discharge by ERMD. Discharge instuctions given with repeat verbalization by pt. Emphasized to follow up with primay care provider. All orders completed per ERMD orders. Pt a&ox4, VSS, no signs of distress, stable gait, clear speech and can form sentences. Pt refused food; used the restroom before discharge, approrate clothing offered but refused. ID band removed. Pt left with all belongings, left with own transportation.
== END 2019-01-17 05:50 | disposition home or self-care (01) ==
LOC: EDBD 00:46 → EMR 01:02
DX: F41.9 Anxiety disorder, unspecified (principal); F15.10 Other stimulant abuse, uncomplicated
CPT/HCPCS: 96372; 99283; J1630

== ENCOUNTER 2019-01-20 11:20 | Inpatient (IN) | payer OTHER ==
[~2019-01-20] VITALS: Ht 157.5 cm; Wt 51.9 kg
--- NOTE | 2019-01-20 11:47 | Emergency Room Report ---
History of Present Illness General Chief Complaint: Nausea Source: Patient Present Illness HPI 28-year-old female past medical history of polysubstance abuse presents with acute nausea and vomiting that started this a.m., patient brought in by EMS, she states whenever she is smelling outside is causing her to vomit, no chest pain, shortness of breath, no abdominal pain, patient endorses only nausea, she denies any pain with urination, patient presents for evaluation Allergies: Coded Allergies: No Known Allergies (Unverified , 05/09/18) Patient History Past Medical History: see triage record Social History: Reports: alcohol use, drug use Last Menstrual Period: 2 weeks Now: No Reviewed Nursing Documentation: PMH: Agreed; PSxH: Agreed Nursing Documentation-PMH Past Medical History: No History, Except For Hx Cardiac Problems: No Hx Cancer: No Hx Gastrointestinal Problems: No History Of Psychiatric Problem: Yes - bipolar, ADD Hx Neurological Problems: No Review of Systems Constitutional: Denies: chills, fever Eye: Denies: blurred vision, double vision ENT: Denies: throat pain, nasal discharge Respiratory: Denies: cough, shortness of breath Cardiovascular: Denies: chest pain, palpitations Gastrointestinal: Reports: nausea, vomiting; Denies: abdominal pain, diarrhea Genitourinary: Denies: dysuria, pain Musculoskeletal: Denies: back pain, muscle pain Skin: Denies: rash, lesions Neurological: Denies: headache, focal weakness Hematologic/Lymphatic: Denies: easy bleeding, easy bruising All Other Systems: negative except mentioned in HPI Physical Exam Vital Signs Date Time Temp Pulse Resp B/P (MAP) Pulse Ox O2 Delivery O2 Flow Rate FiO2 01/20/19 11:18 97.0 100 18 134/69 (90) 97 Room Air Sp02 EP Interpretation: reviewed, normal General Appearance: well appearing, no apparent distress, alert Head: normocephalic, atraumatic Eyes: bilateral eye PERRL, bilateral eye EOMI ENT: uvula midline, moist mucus membranes Neck: supple, thyroid normal, supple/symm/no masses Respiratory: lungs clear, no respiratory distress, no retraction, no accessory muscle use Cardiovascular #1: normal peripheral pulses, regular rate, rhythm, no edema, no gallop, no murmur Gastrointestinal: non tender, soft, no guarding, no rebound Musculoskeletal: normal inspection Neurologic: alert, oriented x3 Psychiatric: mood/affect normal Skin: no rash, warm/dry Medical Decision Making ER Course Patient with acute nausea and vomiting, patient without any pain, labs showed no focal abnormalities, no tenderness on exam, repeat exam shows patient is comfortable, will provide patient with a prescription for Zofran, disposition home with return precautions Urine is grossly contaminated, patient denying any UTI-like symptoms Labs Test 01/20/19 11:25 01/20/19 11:59 Urine Color Yellow Urine Appearance Slightly cloudy Urine pH 6.5 (4.5-8.0) Urine Specific Burley 1.020 (1.005-1.035) Urine Protein 1+ (NEGATIVE) Urine Glucose (UA) Negative (NEGATIVE) Urine Ketones 3+ (NEGATIVE) Urine Blood 5+ (NEGATIVE) Urine Nitrite Negative (NEGATIVE) Urine Bilirubin Negative (NEGATIVE) Urine Urobilinogen 1 MG/DL (0.0-1.0) Urine Leukocyte Esterase 3+ (NEGATIVE) Urine RBC 30-40 /HPF (0 - 2) Urine WBC 2-4 /HPF (0 - 2) Urine Squamous Epithelial Cells Moderate /LPF (NONE/OCC) Urine Amorphous Sediment Moderate /LPF (NONE) Urine Bacteria Few /HPF (NONE) Urine HCG, Qualitative Negative (NEGATIVE) White Blood Count 10.3 K/UL (4.8-10.8) Red Blood Count 4.57 M/UL (4.20-5.40) Hemoglobin 13.7 G/DL (12.0-16.0) Hematocrit 40.9 % (37.0-47.0) Mean Corpuscular Volume 90 FL (80-99) Mean Corpuscular Hemoglobin 30.0 PG (27.0-31.0) Mean Corpuscular Hemoglobin Concent 33.5 G/DL (32.0-36.0) Red Cell Distribution Width 12.7 % (11.6-14.8) Platelet Count 336 K/UL (150-450) Mean Platelet Volume 6.8 FL (6.5-10.1) Neutrophils (%) (Auto) % (45.0-75.0) Lymphocytes (%) (Auto) % (20.0-45.0) Monocytes (%) (Auto) % (1.0-10.0) Eosinophils (%) (Auto) % (0.0-3.0) Basophils (%) (Auto) % (0.0-2.0) Differential Total Cells Counted 100 Neutrophils % (Manual) 91 % (45-75) Lymphocytes % (Manual) 6 % (20-45) Monocytes % (Manual) 2 % (1-10) Eosinophils % (Manual) 0 % (0-3) Basophils % (Manual) 1 % (0-2) Band Neutrophils 0 % (0-8) Platelet Estimate Adequate Platelet Morphology Normal Red Blood Cell Morphology Normal Sodium Level 133 MMOL/L (136-145) Potassium Level 3.9 MMOL/L (3.5-5.1) Chloride Level 95 MMOL/L (98-107) Carbon Dioxide Level 31 MMOL/L (21-32) Anion Gap 7 mmol/L (5-15) Blood Urea Nitrogen 11 mg/dL (7-18) Creatinine 0.8 MG/DL (0.55-1.30) Estimat Glomerular Filtration Rate > 60 mL/min (>60) Glucose Level 115 MG/DL (74-106) Calcium Level 9.0 MG/DL (8.5-10.1) Total Bilirubin 0.4 MG/DL (0.2-1.0) Aspartate Amino Transf (AST/SGOT) 24 U/L (15-37) Alanine Aminotransferase (ALT/SGPT) 16 U/L (12-78) Alkaline Phosphatase 73 U/L (46-116) Total Protein 7.6 G/DL (6.4-8.2) Albumin 4.6 G/DL (3.4-5.0) Globulin 3.0 g/dL Albumin/Globulin Ratio 1.5 (1.0-2.7) Lipase 132 U/L (73-393) Human Chorionic Gonadotropin, Quant 1 mIU/mL (1-6) Last Vital Signs Date Time Temp Pulse Resp B/P (MAP) Pulse Ox O2 Delivery O2 Flow Rate FiO2 01/20/19 11:18 97.0 100 18 134/69 (90) 97 Room Air Status: improved Disposition: HOME, SELF-CARE Condition: Improved Scripts Ondansetron Odt* (ZOFRAN ODT*) 8 Mg Tab.rapdis 4 MG ORAL Q6H PRN for Nausea & Vomiting, #21 TAB Prov: Osmar Gilliland M.D. 01/20/19 Patient Instructions: Nausea and Vomiting, Adult Additional Instructions: Patient is provided with the discharge instructions notified to follow-up with primary doctor in the next 2-3 days otherwise return to the ER with any worsening symptoms Please note that this report is being documented using [employer] technology. This can lead to erroneous entry secondary to incorrect interpretation by the dictating instrument. Osmar Gilliland M.D. Jan 20, 2019 11:47
[2019-01-20 12:00] VITALS: BP 134/69
[2019-01-20] MEDS ORDERED: D5NS 1,000 ML IV ONE (12:00)
[2019-01-20] MEDS ORDERED: Mylanta II UD 30ml ORAL ONE (12:00)
--- NOTE | 2019-01-20 12:00 | NUR ---
ED Nurse Note: pt was brought in by ambulance c/o abdominal pain started few days ado, pt stated she wasnt able eat any food and she is vomiting. pt admitted using meth and the last was this morning. pt was seen by [facility]. pt able to give urine sample, with new order from [facility], iv stablished on right ac, blood drawn adn was sent lab, pt able to tolerate po meds. will continue to monitor.
[2019-01-20 12:20] LABS: HEMATOCRIT 40.9 % (37.0-47.0); HEMOGLOBIN 13.7 G/DL (12.0-16.0); MEAN CORPUSCULAR VOLUME 90 FL (80-99); PLATELET COUNT 336 K/UL (150-450); RED BLOOD COUNT 4.57 M/UL (4.20-5.40); RED CELL DISTRIBUTION WIDTH 12.7 % (11.6-14.8); WHITE BLOOD COUNT 10.3 K/UL (4.8-10.8)
[2019-01-20 12:26] LABS: APPEARANCE,URINE SLIGHTLY CLOUDY; BILIRUBIN, URINE NEGATIVE (NEGATIVE); GLUCOSE, URINE (UA) NEGATIVE (NEGATIVE); KETONES,URINE 3+ (NEGATIVE); LEUKOCYTE ESTERASE ,URINE 3+ (NEGATIVE); NITRITE,URINE NEGATIVE (NEGATIVE); PH,URINE 6.5 (4.5-8.0); PROTEIN,URINE 1+ (NEGATIVE); UROBILINOGEN,URINE 1 MG/DL (0.0-1.0)
[2019-01-20 12:31] LABS: ANION GAP 7 mmol/L (5-15); BLOOD UREA NITROGEN 11 mg/dL (7-18); CARBON DIOXIDE 31 MMOL/L (21-32); CHLORIDE 95 MMOL/L (98-107); CREATININE 0.8 MG/DL (0.55-1.30); POTASSIUM 3.9 MMOL/L (3.5-5.1); SODIUM 133 MMOL/L (136-145)
[2019-01-20 12:32] LABS: COLOR,URINE YELLOW
[2019-01-20 12:36] LABS: ALANINE AMINOTRANSFERASE 16 U/L (12-78); ALBUMIN 4.6 G/DL (3.4-5.0); ALBUMIN/GLOBULIN RATIO 1.5 (1.0-2.7); ALKALINE PHOSPHATASE 73 U/L (46-116); ASPARTATE AMINO TRANSFERASE 24 U/L (15-37); BILIRUBIN,TOTAL 0.4 MG/DL (0.2-1.0)
--- NOTE | 2019-01-20 12:40 | NUR ---
ED Nurse Note: pt was medicated as ordered. pt able to tolerate po meds.
[2019-01-20 13:10] VITALS: BP 116/67
[2019-01-20] MEDS ORDERED: ZOFRAN ODT8 MG ORAL (13:38)
--- NOTE | 2019-01-20 14:20 | NUR ---
ED Nurse Note: pt is about to be discharge but pt complains of dizziness, and vomiting. ermd made aware. med given as ordered. will continue to monitor.
[2019-01-20] MEDS ORDERED: Meclizine 25mg tab ORAL PRN (14:45)
[2019-01-20] MEDS ORDERED: Metoclopramide 10mg/2ml Inj IM ONE (14:45)
[2019-01-20] MEDS ORDERED: Metoclopramide 10mg/2ml Inj IVP ONE (15:30)
--- NOTE | 2019-01-20 15:30 | NUR ---
ED Nurse Note: pt vomited again. ermd made aware. meds given through iv and able to tolerate. pt stated she is dizzy, ermd on bedside talking to pt regarding the posible admission. pt able to verbalize understanding. will continue to monitor.
[2019-01-20 16:00] VITALS: BP_SYST 115; BP_SYST 155; BP_DIAS 75
--- NOTE | 2019-01-20 16:10 | NUR ---
ED Nurse Note: pt was brought to ct with tech
--- NOTE | 2019-01-20 16:34 | Diagnostic Imaging Report ---
Indications: Dizziness and vertigo Technique: Spiral acquisitions obtained through the brain. Angled axial and coronal 5 x 5 mm slices were reconstructed. Total dose length product 1386.64 mGycm. CTDI vol(s) 70.38 mGy. Dose reduction achieved using automated exposure control Comparison: None. Findings: No acute intracranial hemorrhage or edema, mass effect, nor midline shift. Normal-sized ventricles and extra-axial CSF spaces. Intact calvarium. Visualized orbits and sinuses are unremarkable. Eagle-white differentiation is normal. Impression: Negative The CT scanner at [facility] is accredited by the [employer] and the scans are performed using protocols designed to limit radiation exposure to as low as reasonably achievable to attain images of sufficient resolution adequate for diagnostic evaluation.
--- NOTE | 2019-01-20 16:44 | Diagnostic Imaging Report ---
Indication: Pain, vomiting Technique: Spiral acquisitions obtained through the abdomen and pelvis. No oral contrast utilized, per emergency room physician request No IV contrast utilized, per referring physician request.. Multiplanar reconstructions were generated. Total dose length product 490.32 mGycm. CTDIvol(s) 9.57 mGy. Dose reduction achieved using automated exposure control Comparison: None Findings: Lack of enteric contrast limits assessment of the GI tract. There is what appears to be a rectangular density measuring 7 x 4 mm in diameter projecting at the level of the gastroesophageal junction. This appears to be approximately calcium density, less dense than metal. Questionable similar appearing object is also seen in the distal esophagus a few centimeters proximal to the gastroesophageal junction and a third similar density is seen in the left mid abdominal small bowel. The distal esophagus, stomach, duodenum are otherwise unremarkable. Multiple small bowel loops are gas-filled, upper limits normal in caliber, not frankly dilated. No free or loculated intraperitoneal gas or fluid is evident. No evidence of colonic diverticulosis or diverticulitis. The appendix is normal. Lack of IV contrast limits assessment of the solid organs. The liver, gallbladder, bile ducts, pancreas, spleen, adrenals, kidneys are all unremarkable. The uterus contains an intrauterine device. No pelvic mass or adenopathy. The bladder is distended. The included lung bases are clear. The bones are unremarkable Impression: Limited assessment of the GI tract, due to lack of enteric contrast administration No definite acute abnormality Rectangular 7 x 4 mm densities, 2 of which seen in the distal esophagus, one in the small bowel. Most likely represent ingested tablets, but could also represent small ingested foreign bodies Intrauterine device incidentally noted Distended bladder The CT scanner at [facility] is accredited by the [employer] and the scans are performed using protocols designed to limit radiation exposure to as low as reasonably achievable to attain images of sufficient resolution adequate for diagnostic evaluation.
--- NOTE | 2019-01-20 17:18 | NUR ---
ED Nurse Note: attempted to give report to accepting nurse but rn is busy as of the moment. will call back
--- NOTE | 2019-01-20 17:43 | NUR ---
ED Nurse Note: pt is admitted to hospital and report was given to bonifacio jones
--- NOTE | 2019-01-20 18:08 | NUR ---
ED Nurse Note: pt was transfered to the room with satble vs, all belongings endorsed to bonifacio rn
[2019-01-20 18:30] VITALS: BP 126/83
[2019-01-20] MEDS ORDERED: LORazepam 1mg tab ORAL PRN (19:15)
[2019-01-20] MEDS ORDERED: Zolpidem 5mg tab ORAL PRN (19:15)
[2019-01-20] MEDS ORDERED: HYDROmorphone 1mg/ml Carpuject IVP PRN (19:15)
[2019-01-20] MEDS ORDERED: Milk of Magnesia 30ml Ud ORAL PRN (19:15)
--- NOTE | 2019-01-20 19:29 | NUR ---
NURSE NOTES: Received pt from ASSISTANT CLINICAL DIRECTOR ISRAEL at 1810. Pt is alert and orient x4. pt is in RA, no SOB or acute respiratory distress noted. pt has intact iv access RAC 20G SL. skin intact. called Dr hayes regarding admission, he will F/U. no N/W in my shift. all needs attended, bed is locked and is in the lowest position. call light within easy reach. will continue to monitor. Report given to RN APRIL to do admission process.
--- NOTE | 2019-01-20 19:31 | NUR ---
NURSE NOTES: Received report from FLORENCIA Joseph. Patient A&OX4. On room air, no signs of distress or labored breathing. Appears anxious. IV intact, patent, and saline locked. Reporting tolerable pain. Bed in lowest position with call light in reach. Awaiting MD orders.
[2019-01-20 20:00] VITALS: BP 129/85
--- NOTE | 2019-01-20 20:43 | History and Physical ---
History of Present Illness General Date patient seen: Jan 20, 2019 Reason for Hospitalization: Nausea Present Illness HPI 28 year old female with no significant PMH presented wt complaints of intractable vomiting and nausea. states started today, does not recall precipitating factors.Pt denies substance abuse, chest pain, headaches, blurry vision, urinary complaints, abdominal complaints, fevers, chills, or SOB Allergies: Coded Allergies: No Known Allergies (Unverified , 05/09/18) Medication History Scheduled Cabergoline (Cabergoline), 0.025 MG PO 2XW, (Reported) Dextroamphetamine/Amphetamine (Adderall 20 mg Tablet), 20 MG ORAL DAILY, ( Reported) Lisdexamfetamine Dimesylate (Vyvanse), 70 MG ORAL DAILY, (Reported) Oxcarbazepine* (Trileptal*), 600 MG PO DAILY, (Reported) Scheduled PRN Ondansetron Odt* (Zofran Odt*), 4 MG ORAL Q6H PRN for Nausea & Vomiting Miscellaneous Medications Lurasidone Hcl (Latuda), 80 MG PO, (Reported) Discontinued Medications Nitrofurantoin Monohyd/M-Cryst* (Macrobid 100 Mg*), 100 MG ORAL EVERY 12 HOURS Discontinued Reason: Therapy completed Patient History Healthcare decision maker N Resuscitation status Advanced Directive on File Review of Systems ROS Narrative General ROS:~no weight loss or fever Psychological ROS:~no depression or mood changes, no memory loss Ophthalmic ROS:~no visual changes or eye irritation ENT ROS:~no nasal congestion, hearing loss, dizziness Allergy and Immunology ROS:~no allergic symptoms or urticaria Hematological and Lymphatic ROS:~no swollen glands, unusual bleeding or bruising Endocrine ROS:~no polyuria, polydipsia, weight changes, temperature intolerance Respiratory ROS:~no cough, shortness of breath, or wheezing Cardiovascular ROS:~no chest pain or dyspnea on exertion Gastrointestinal ROS:c/o nausea and vomiting Musculoskeletal ROS:~no myalgias or arthralgias Neurological ROS:~no TIA or stroke symptoms Dermatological ROS:~no new or changing skin lesions, rashes or pruritis Physical Exam Last 24 Hour Vital Signs Date Time Temp Pulse Resp B/P (MAP) Pulse Ox O2 Delivery O2 Flow Rate FiO2 01/20/19 18:30 97.6 97 16 126/83 (97) 98 01/20/19 18:08 97.4 82 17 115/75 97 Room Air 01/20/19 16:00 97.4 82 17 115/75 97 Room Air 01/20/19 13:10 97.4 87 16 116/67 97 Room Air 01/20/19 12:00 97.0 97 18 134/69 97 Room Air 01/20/19 11:18 97.0 100 18 134/69 (90) 97 Room Air Laboratory Tests Test 01/20/19 11:25 01/20/19 11:59 Urine Color Yellow Urine Appearance Slightly cloudy Urine pH 6.5 (4.5-8.0) Urine Specific [place] 1.020 (1.005-1.035) Urine Protein 1+ (NEGATIVE) H Urine Glucose (UA) Negative (NEGATIVE) Urine Ketones 3+ (NEGATIVE) H Urine Blood 5+ (NEGATIVE) H Urine Nitrite Negative (NEGATIVE) Urine Bilirubin Negative (NEGATIVE) Urine Urobilinogen 1 MG/DL (0.0-1.0) H Urine Leukocyte Esterase 3+ (NEGATIVE) H Urine RBC 30-40 /HPF (0 - 2) H Urine WBC 2-4 /HPF (0 - 2) Urine Squamous Epithelial Cells Moderate /LPF (NONE/OCC) H Urine Amorphous Sediment Moderate /LPF (NONE) H Urine Bacteria Few /HPF (NONE) Urine HCG, Qualitative Negative (NEGATIVE) White Blood Count 10.3 K/UL (4.8-10.8) Red Blood Count 4.57 M/UL (4.20-5.40) Hemoglobin 13.7 G/DL (12.0-16.0) Hematocrit 40.9 % (37.0-47.0) Mean Corpuscular Volume 90 FL (80-99) Mean Corpuscular Hemoglobin 30.0 PG (27.0-31.0) Mean Corpuscular Hemoglobin Concent 33.5 G/DL (32.0-36.0) Red Cell Distribution Width 12.7 % (11.6-14.8) Platelet Count 336 K/UL (150-450) Mean Platelet Volume 6.8 FL (6.5-10.1) Neutrophils (%) (Auto) % (45.0-75.0) Lymphocytes (%) (Auto) % (20.0-45.0) Monocytes (%) (Auto) % (1.0-10.0) Eosinophils (%) (Auto) % (0.0-3.0) Basophils (%) (Auto) % (0.0-2.0) Differential Total Cells Counted 100 Neutrophils % (Manual) 91 % (45-75) H Lymphocytes % (Manual) 6 % (20-45) L Monocytes % (Manual) 2 % (1-10) Eosinophils % (Manual) 0 % (0-3) Basophils % (Manual) 1 % (0-2) Band Neutrophils 0 % (0-8) Platelet Estimate Adequate Platelet Morphology Normal Red Blood Cell Morphology Normal Sodium Level 133 MMOL/L (136-145) L Potassium Level 3.9 MMOL/L (3.5-5.1) Chloride Level 95 MMOL/L (98-107) L Carbon Dioxide Level 31 MMOL/L (21-32) Anion Gap 7 mmol/L (5-15) Blood Urea Nitrogen 11 mg/dL (7-18) Creatinine 0.8 MG/DL (0.55-1.30) Estimat Glomerular Filtration Rate > 60 mL/min (>60) Glucose Level 115 MG/DL (74-106) H Calcium Level 9.0 MG/DL (8.5-10.1) Total Bilirubin 0.4 MG/DL (0.2-1.0) Aspartate Amino Transf (AST/SGOT) 24 U/L (15-37) Alanine Aminotransferase (ALT/SGPT) 16 U/L (12-78) Alkaline Phosphatase 73 U/L (46-116) Total Protein 7.6 G/DL (6.4-8.2) Albumin 4.6 G/DL (3.4-5.0) Globulin 3.0 g/dL Albumin/Globulin Ratio 1.5 (1.0-2.7) Lipase 132 U/L (73-393) Human Chorionic Gonadotropin, Quant 1 mIU/mL (1-6) Serum Alcohol < 3 mg/dL Height (Feet): 5 Height (Inches): 2.00 Weight (Pounds): 115 Medications Current Medications Medications (Trade) Dose Ordered Sig/Mariana Route PRN Reason Start Time Stop Time Status Last Admin Dose Admin Acetaminophen (Tylenol) 650 mg Q4H PRN ORAL Mild Pain (Pain Scale 1-3) 01/20/19 19:15 02/19/19 19:14 Bisacodyl (Dulcolax) 10 mg HSPRN PRN RECTAL Constipation 01/20/19 19:15 02/19/19 19:14 Dextrose (Dextrose 50%) 25 ml Q30M PRN IV Hypoglycemia 01/20/19 19:15 02/19/19 19:14 Dextrose (Dextrose 50%) 50 ml Q30M PRN IV Hypoglycemia 01/20/19 19:15 02/19/19 19:14 Diphenhydramine HCl (Benadryl) 25 mg Q6H PRN ORAL Itching/Pruritis 01/20/19 19:15 02/19/19 19:14 Docusate Sodium (Colace) 100 mg EVERY 12 HOURS ORAL 01/20/19 21:00 02/19/19 20:59 Famotidine (Pepcid) 40 mg DAILY ORAL 01/21/19 09:00 02/20/19 08:59 Heparin Sodium (Porcine) (Heparin 5000 units/ml) 5,000 units EVERY 12 HOURS SUBQ 01/20/19 21:00 02/19/19 20:59 Hydromorphone HCl (Dilaudid) 1 mg Q6H PRN IVP Moderate Pain (Pain Scale 4-6) 01/20/19 19:15 01/27/19 19:14 Hydromorphone HCl (Dilaudid) 2 mg Q6H PRN IVP Severe Pain (Pain Scale 7-10) 01/20/19 19:15 01/27/19 19:14 Lorazepam (Ativan) 1 mg Q4H PRN ORAL For Anxiety 01/20/19 19:15 01/27/19 19:14 Magnesium Hydroxide (Mom) 30 ml HSPRN PRN ORAL Constipation 01/20/19 19:15 02/19/19 19:14 Meclizine HCl (Antivert) 25 mg STAT PRN ORAL for dizziness 01/20/19 14:45 02/19/19 14:44 01/20/19 15:22 Ondansetron HCl (Zofran) 4 mg Q6H PRN IVP Nausea & Vomiting 01/20/19 19:15 02/19/19 19:14 Zolpidem Tartrate (Ambien) 5 mg HSPRN PRN ORAL Insomnia 01/20/19 19:15 7/17/19 19:14 Objective Narrative General appearance:~~alert, cooperative, no distress, appears stated age Head:~~Normocephalic, without obvious abnormality, atraumatic Eyes:~~conjunctivae/corneas clear. PERRL, EOM's intact. Fundi benign Throat:~~Lips, mucosa, and tongue normal. Teeth and gums normal Neck:~~supple, symmetrical, trachea midline, no adenopathy, thyroid: not enlarged, symmetric, no tenderness/mass/nodules, no carotid bruit and no JVD Lungs:~~clear to auscultation bilaterally Heart:~~regular rate and rhythm, S1, S2 normal, no murmur, click, rub or gallop Abdomen:~~soft, non-tender. Bowel sounds normal. No masses, ~no organomegaly Extremities:~~extremities normal, atraumatic, no cyanosis or edema Pulses:~~2+ and symmetric Skin:~~Skin color, texture, turgor normal. No rashes or lesions Neurologic:~~Grossly normal Assessment/Plan Assessment/Plan: Intractable nausea and vomiting -possible cyclic vomiting 2/2 marijuana use -monitor electrolytes, replete PRN -zofran PRN -clear liq - adv as tolerated #Hyponatremia CTM Code: Gauge Operator of note may not reflect time of encounter Ioana Keyes MD Jan 20, 2019 20:43
[2019-01-20] MEDS: Docusate 100mg cap ORAL SCH (21:00)
[2019-01-20] MEDS: Heparin 5000 units/ml inj SUBQ SCH (21:00)
--- NOTE | 2019-01-20 22:35 | Neurology Progress Note ---
Interim History Interim History ROS Limited/Unobtainable: No Interim History 28-year-old female past medical history of polysubstance abuse presents with acute nausea and vomiting that started this a.m., patient brought in by EMS, she states whenever she is smelling outside is causing her to vomit, no chest pain, shortness of breath, no abdominal pain, patient endorses only nausea, she denies any pain with urination, patient presents for evaluation Objective Physical Exam Last Vital Signs Date Time Temp Pulse Resp B/P (MAP) Pulse Ox O2 Delivery O2 Flow Rate FiO2 01/20/19 18:30 97.6 97 16 126/83 (97) 98 01/20/19 18:08 Room Air Laboratory Tests Test 01/20/19 11:25 01/20/19 11:59 Urine Color Yellow Urine Appearance Slightly cloudy Urine pH 6.5 (4.5-8.0) Urine Specific [place] 1.020 (1.005-1.035) Urine Protein 1+ (NEGATIVE) H Urine Glucose (UA) Negative (NEGATIVE) Urine Ketones 3+ (NEGATIVE) H Urine Blood 5+ (NEGATIVE) H Urine Nitrite Negative (NEGATIVE) Urine Bilirubin Negative (NEGATIVE) Urine Urobilinogen 1 MG/DL (0.0-1.0) H Urine Leukocyte Esterase 3+ (NEGATIVE) H Urine RBC 30-40 /HPF (0 - 2) H Urine WBC 2-4 /HPF (0 - 2) Urine Squamous Epithelial Cells Moderate /LPF (NONE/OCC) H Urine Amorphous Sediment Moderate /LPF (NONE) H Urine Bacteria Few /HPF (NONE) Urine HCG, Qualitative Negative (NEGATIVE) White Blood Count 10.3 K/UL (4.8-10.8) Red Blood Count 4.57 M/UL (4.20-5.40) Hemoglobin 13.7 G/DL (12.0-16.0) Hematocrit 40.9 % (37.0-47.0) Mean Corpuscular Volume 90 FL (80-99) Mean Corpuscular Hemoglobin 30.0 PG (27.0-31.0) Mean Corpuscular Hemoglobin Concent 33.5 G/DL (32.0-36.0) Red Cell Distribution Width 12.7 % (11.6-14.8) Platelet Count 336 K/UL (150-450) Mean Platelet Volume 6.8 FL (6.5-10.1) Neutrophils (%) (Auto) % (45.0-75.0) Lymphocytes (%) (Auto) % (20.0-45.0) Monocytes (%) (Auto) % (1.0-10.0) Eosinophils (%) (Auto) % (0.0-3.0) Basophils (%) (Auto) % (0.0-2.0) Differential Total Cells Counted 100 Neutrophils % (Manual) 91 % (45-75) H Lymphocytes % (Manual) 6 % (20-45) L Monocytes % (Manual) 2 % (1-10) Eosinophils % (Manual) 0 % (0-3) Basophils % (Manual) 1 % (0-2) Band Neutrophils 0 % (0-8) Platelet Estimate Adequate Platelet Morphology Normal Red Blood Cell Morphology Normal Sodium Level 133 MMOL/L (136-145) L Potassium Level 3.9 MMOL/L (3.5-5.1) Chloride Level 95 MMOL/L (98-107) L Carbon Dioxide Level 31 MMOL/L (21-32) Anion Gap 7 mmol/L (5-15) Blood Urea Nitrogen 11 mg/dL (7-18) Creatinine 0.8 MG/DL (0.55-1.30) Estimat Glomerular Filtration Rate > 60 mL/min (>60) Glucose Level 115 MG/DL (74-106) H Calcium Level 9.0 MG/DL (8.5-10.1) Total Bilirubin 0.4 MG/DL (0.2-1.0) Aspartate Amino Transf (AST/SGOT) 24 U/L (15-37) Alanine Aminotransferase (ALT/SGPT) 16 U/L (12-78) Alkaline Phosphatase 73 U/L (46-116) Total Protein 7.6 G/DL (6.4-8.2) Albumin 4.6 G/DL (3.4-5.0) Globulin 3.0 g/dL Albumin/Globulin Ratio 1.5 (1.0-2.7) Lipase 132 U/L (73-393) Human Chorionic Gonadotropin, Quant 1 mIU/mL (1-6) Serum Alcohol < 3 mg/dL General: well developed Head: normocophalic Neck: no rigidity EENT: benign Neurologic Exam Mental Status: awake, alert, oriented x4, normal cognition, good mathematical skills, normal recent memory, normal remote memory, preserved visuospatial function Speech: normal speech, no dysarthia Language: normal language, no aphasia Cranial Nerve II: fundus normal, visual osman, no papilledema Cranial Nerves III, IV, : PERRLA, EOMI, pupils Cranial Nerve V: normal facial sensations, temporales function normal, masseters function normal, pterygoids function normal Cranial Nerve VII: no facial asymmetry Cranial Nerve VIII: normal hearing Cranial Nerve IX: normal palate elevation, gag response Cranial Nerve X: no voice hoarseness Cranial Nerve XI: SCM symmetric, trapezii function normal Cranial Nerve XII: tongue midline, no tongue atrophy/fasciculations Motor System: normal muscle tone, strength 5/5, no involuntary movement, no muscle wasting Sensory: normal pinprick, normal light touch, normal position sense, normal graphesthesia Coordination: normal finger to nose bilaterally, normal heel to maldonado bilaterally, negative Romberg test Impression/Recommendations Problems: (1) Anxiety (2) Nausea and vomiting in adult patient (3) Bronchitis Diagnostic Impression encephalopathy due to intoxication no red flags for further vapor coater imaging Osmar Allen MD Jan 20, 2019 22:35
--- NOTE | 2019-01-21 | NUR ---
NURSE NOTES: Patient refusing IV fluids one hour after of administration stating "that's enough, I feel better now." RN explained purpose of IVF and how it works, risks and benefits. Patient still refusing. Will notify .
[2019-01-21 07:02] LABS: BASOPHILS % (AUTO) 1.6 % (0.0-2.0); EOSINOPHILS % (AUTO) 1.8 % (0.0-3.0); HEMATOCRIT 38.2 % (37.0-47.0); HEMOGLOBIN 12.9 G/DL (12.0-16.0); LYMPHOCYTES % (AUTO) 29.2 % (20.0-45.0); MEAN CORPUSCULAR VOLUME 90 FL (80-99); MONOCYTES % (AUTO) 6.9 % (1.0-10.0); NEUTROPHILS % (AUTO) 60.5 % (45.0-75.0); PLATELET COUNT 316 K/UL (150-450); RED BLOOD COUNT 4.25 M/UL (4.20-5.40); RED CELL DISTRIBUTION WIDTH 12.9 % (11.6-14.8); WHITE BLOOD COUNT 6.8 K/UL (4.8-10.8)
--- NOTE | 2019-01-21 07:14 | NUR ---
HAND-OFF: Report given to FLORENCIA Joseph.
--- NOTE | 2019-01-21 07:30 | NUR ---
NURSE NOTES: Received pt from FLORENCIA CHEN. Pt is alert and orient x4. pt is in RA, no SOB or acute respiratory distress noted. pt has intact iv access RAC 20G SL. Pt is eating breakfast independently and tolerate well. all needs attended, bed is locked and is in the lowest position. call light within easy reach. will continue to monitor.
[2019-01-21 07:38] LABS: ALANINE AMINOTRANSFERASE 14 U/L (12-78); ALBUMIN 3.5 G/DL (3.4-5.0); ALBUMIN/GLOBULIN RATIO 1.1 (1.0-2.7); ALKALINE PHOSPHATASE 71 U/L (46-116); ANION GAP 8 mmol/L (5-15); ASPARTATE AMINO TRANSFERASE 17 U/L (15-37); BILIRUBIN,TOTAL 0.3 MG/DL (0.2-1.0); BLOOD UREA NITROGEN 5 mg/dL (7-18); CALCIUM 8.7 MG/DL (8.5-10.1); CARBON DIOXIDE 25 MMOL/L (21-32); CHLORIDE 106 MMOL/L (98-107); CREATININE 0.7 MG/DL (0.55-1.30); POTASSIUM 3.1 MMOL/L (3.5-5.1); SODIUM 139 MMOL/L (136-145)
[2019-01-21 08:00] VITALS: BP 110/67
[2019-01-21] MEDS: Heparin 5000 units/ml inj SUBQ SCH (09:00)
[2019-01-21] MEDS: Docusate 100mg cap ORAL SCH (09:00)
--- NOTE | 2019-01-21 11:01 | Discharge Instructions ---
Discharge Instructions Discharge Instructions Follow up with: pcp Call MD/Return to Hospital if: fevers, intractable pain, intractable vomiting Diet: bland Resume Normal Activity?: Yes Activity: resume normal activities For Congestive Heart Failure Reminder Report to your physician any weight gain of 5 pounds or more in one week. Ioana Keyes MD Jan 21, 2019 11:01
--- NOTE | 2019-01-21 11:03 | Discharge Summary ---
Discharge Summary Hospital Course Date of Admission Jan 20, 2019 at 16:10 Date of Discharge Admitting Diagnosis intractable vomiting HPI Amanda Mckeon is a 28 year old female who was admitted on Jan 20, 2019 at 16:10 for Intractable Pain and vomiting Hospital Course Pt admitted for intractable nausea and vomiting, treated with Zofran and observed overnight. Pt tolerating PO diet prior to discharge, evaluated by GI for foreign body inside abdomin, likely tablets, pt denies swallowing foreign bodies, no intervention needed. On discharge pt with stable gait, tolerating PO diet and hemodynamically stable Discharge Medications Continued Medications: Cabergoline (Cabergoline) 0.5 Mg Tablet 0.025 MG PO 2XW, TAB (This prescription has been renewed) Dextroamphetamine/Amphetamine (Adderall 20 mg Tablet) 20 Mg Tablet 20 MG ORAL DAILY, TAB (This prescription has been renewed) Lisdexamfetamine Dimesylate (Vyvanse) 70 Mg Capsule 70 MG ORAL DAILY, #30 CAP 0 Refills (This prescription has been renewed) Lurasidone Hcl (Latuda) 80 Mg Tablet 80 MG PO, TAB (This prescription has been renewed) Ondansetron Odt* (Zofran Odt*) 8 Mg Tab.rapdis 4 MG ORAL Q6H PRN for Nausea & Vomiting, #21 TAB Oxcarbazepine* (Trileptal*) 600 Mg Tablet 600 MG PO DAILY, TAB (This prescription has been renewed) Discontinued Medications: Nitrofurantoin Monohyd/M-Cryst* (Macrobid 100 Mg*) 100 Mg Capsule 100 MG ORAL EVERY 12 HOURS for 7 Days, #14 CAP Discharge Condition Upon Discharge: stable Discharge Disposition Patient was discharged to home Discharge Instructions Discharge Instructions Follow up with: pcp Call MD/Return to Hospital if: fevers, intractable pain, intractable vomiting Activity: resume normal activities Ioana Keyes MD Jan 21, 2019 11:03
--- NOTE | 2019-01-21 11:04 | GI Initial Consult Note ---
History of Present Illness General Date patient seen: Jan 21, 2019 Time patient seen: 10:59 Reason for Hospitalization: Nausea Referring physician: KWAKU Reason for Consultation: PANCREATITIS Present Illness HPI 28-year-old female past medical history of polysubstance abuse presents with acute nausea and vomiting that started this a.m., patient brought in by EMS, she states whenever she is smelling outside is causing her to vomit, no chest pain, shortness of breath, no abdominal pain, patient endorses only nausea, she denies any pain with urination, patient presents for evaluation GI consulted for pancreatitis. Patient seen, awake alert no apparent distress has current complaint of nausea and anxiety. Patient reported spontaneous nausea and vomiting last night. Patient denies any drug use, EtOH or tobacco use. Abdominal pelvis CT noted possible foreign bodies seen in the esophagus, however the patient denies any ingestion. She admits they may have been tablets , but is unsure. No history of endoscopic colonoscopy. Labs reviewed; no leukocytosis, no anemia. Home Meds Active Scripts Ondansetron Odt* (ZOFRAN ODT*) 8 Mg Tab.rapdis, 4 MG ORAL Q6H PRN for Nausea & Vomiting, #21 TAB Prov:Osmar Gilliland M.D. 01/20/19 Nitrofurantoin Monohyd/M-Cryst* (MACROBID 100 MG*) 100 Mg Capsule, 100 MG ORAL EVERY 12 HOURS for 7 Days, #14 CAP Prov:Carmen Sanchez 01/16/19 Reported Medications Dextroamphetamine/Amphetamine (Adderall 20 mg Tablet) 20 Mg Tablet, 20 MG ORAL DAILY, TAB 12/24/18 Lisdexamfetamine Dimesylate (VYVANSE) 70 Mg Capsule, 70 MG ORAL DAILY, #30 CAP 0 Refills 12/24/18 Cabergoline (CABERGOLINE) 0.5 Mg Tablet, 0.025 MG PO 2XW, TAB 12/24/18 Oxcarbazepine* (TRILEPTAL*) 600 Mg Tablet, 600 MG PO DAILY, TAB 12/24/18 Lurasidone Hcl (LATUDA) 80 Mg Tablet, 80 MG PO, TAB 05/09/18 Med list reviewed/reconciled: Yes Allergies: Coded Allergies: No Known Allergies (Unverified , 05/09/18) Patient History PMH Narrative Past Medical History: see triage record Social History: Reports: alcohol use, drug use Last Menstrual Period: 2 weeks Now: No Reviewed Nursing Documentation: PMH: Agreed; PSxH: Agreed Nursing Documentation-PMH Past Medical History: No History, Except For Hx Cardiac Problems: No Hx Cancer: No Hx Gastrointestinal Problems: No History Of Psychiatric Problem: Yes - bipolar, ADD Hx Neurological Problems: No Review of Systems All Other Systems: negative except mentioned in HPI Physical Exam Vital Signs Date Time Temp Pulse Resp B/P (MAP) Pulse Ox O2 Delivery O2 Flow Rate FiO2 01/20/19 11:18 97.0 100 18 134/69 (90) 97 Room Air Sp02 EP Interpretation: reviewed, normal Labs Laboratory Tests Test 01/20/19 11:25 01/20/19 11:59 01/21/19 05:43 01/21/19 10:30 Urine Color Yellow Urine Appearance Slightly cloudy Urine pH 6.5 (4.5-8.0) Urine Specific [place] 1.020 (1.005-1.035) Urine Protein 1+ (NEGATIVE) H Urine Glucose (UA) Negative (NEGATIVE) Urine Ketones 3+ (NEGATIVE) H Urine Blood 5+ (NEGATIVE) H Urine Nitrite Negative (NEGATIVE) Urine Bilirubin Negative (NEGATIVE) Urine Urobilinogen 1 MG/DL (0.0-1.0) H Urine Leukocyte Esterase 3+ (NEGATIVE) H Urine RBC 30-40 /HPF (0 - 2) H Urine WBC 2-4 /HPF (0 - 2) Urine Squamous Epithelial Cells Moderate /LPF (NONE/OCC) H Urine Amorphous Sediment Moderate /LPF (NONE) H Urine Bacteria Few /HPF (NONE) Urine HCG, Qualitative Negative (NEGATIVE) White Blood Count 10.3 K/UL (4.8-10.8) 6.8 K/UL (4.8-10.8) Red Blood Count 4.57 M/UL (4.20-5.40) 4.25 M/UL (4.20-5.40) Hemoglobin 13.7 G/DL (12.0-16.0) 12.9 G/DL (12.0-16.0) Hematocrit 40.9 % (37.0-47.0) 38.2 % (37.0-47.0) Mean Corpuscular Volume 90 FL (80-99) 90 FL (80-99) Mean Corpuscular Hemoglobin 30.0 PG (27.0-31.0) 30.3 PG (27.0-31.0) Mean Corpuscular Hemoglobin Concent 33.5 G/DL (32.0-36.0) 33.7 G/DL (32.0-36.0) Red Cell Distribution Width 12.7 % (11.6-14.8) 12.9 % (11.6-14.8) Platelet Count 336 K/UL (150-450) 316 K/UL (150-450) Mean Platelet Volume 6.8 FL (6.5-10.1) 7.2 FL (6.5-10.1) Neutrophils (%) (Auto) % (45.0-75.0) 60.5 % (45.0-75.0) Lymphocytes (%) (Auto) % (20.0-45.0) 29.2 % (20.0-45.0) Monocytes (%) (Auto) % (1.0-10.0) 6.9 % (1.0-10.0) Eosinophils (%) (Auto) % (0.0-3.0) 1.8 % (0.0-3.0) Basophils (%) (Auto) % (0.0-2.0) 1.6 % (0.0-2.0) Differential Total Cells Counted 100 Neutrophils % (Manual) 91 % (45-75) H Lymphocytes % (Manual) 6 % (20-45) L Monocytes % (Manual) 2 % (1-10) Eosinophils % (Manual) 0 % (0-3) Basophils % (Manual) 1 % (0-2) Band Neutrophils 0 % (0-8) Platelet Estimate Adequate Platelet Morphology Normal Red Blood Cell Morphology Normal Sodium Level 133 MMOL/L (136-145) L 139 MMOL/L (136-145) Potassium Level 3.9 MMOL/L (3.5-5.1) 3.1 MMOL/L (3.5-5.1) L Chloride Level 95 MMOL/L (98-107) L 106 MMOL/L (98-107) Carbon Dioxide Level 31 MMOL/L (21-32) 25 MMOL/L (21-32) Anion Gap 7 mmol/L (5-15) 8 mmol/L (5-15) Blood Urea Nitrogen 11 mg/dL (7-18) 5 mg/dL (7-18) L Creatinine 0.8 MG/DL (0.55-1.30) 0.7 MG/DL (0.55-1.30) Estimat Glomerular Filtration Rate > 60 mL/min (>60) > 60 mL/min (>60) Glucose Level 115 MG/DL (74-106) H 116 MG/DL (74-106) H Calcium Level 9.0 MG/DL (8.5-10.1) 8.7 MG/DL (8.5-10.1) Total Bilirubin 0.4 MG/DL (0.2-1.0) 0.3 MG/DL (0.2-1.0) Aspartate Amino Transf (AST/SGOT) 24 U/L (15-37) 17 U/L (15-37) Alanine Aminotransferase (ALT/SGPT) 16 U/L (12-78) 14 U/L (12-78) Alkaline Phosphatase 73 U/L (46-116) 71 U/L (46-116) Total Protein 7.6 G/DL (6.4-8.2) 6.6 G/DL (6.4-8.2) Albumin 4.6 G/DL (3.4-5.0) 3.5 G/DL (3.4-5.0) Globulin 3.0 g/dL 3.1 g/dL Albumin/Globulin Ratio 1.5 (1.0-2.7) 1.1 (1.0-2.7) Lipase 132 U/L (73-393) Human Chorionic Gonadotropin, Quant 1 mIU/mL (1-6) Serum Alcohol < 3 mg/dL Urine Opiates Screen Pending Urine Barbiturates Screen Pending Phencyclidine (PCP) Screen Pending Urine Amphetamines Screen Pending Urine Benzodiazepines Screen Pending Urine Cocaine Screen Pending Urine Marijuana (THC) Screen Pending General Appearance: well appearing, no apparent distress, alert Head: normocephalic EENT: PERRL/EOMI, normal ENT inspection Neck: supple Respiratory: normal breath sounds, no respiratory distress Cardiovascular: normal rate Gastrointestinal: normal inspection, non tender, soft, normal bowel sounds, non -distended Rectal: deferred Genitourinary: no CVA tenderness Musculoskeletal: normal inspection, back normal Neurologic: normal inspection, alert, oriented x3, responsive Psychiatric: normal inspection, judgement/insight normal, memory normal Skin: normal inspection, normal color, no rash, warm/dry, palpation normal, well hydrated Lymphatic: normal inspection, no adenopathy Current Medications Current Medications Medications (Trade) Dose Ordered Sig/Mariana Route PRN Reason Start Time Stop Time Status Last Admin Dose Admin Acetaminophen (Tylenol) 650 mg Q4H PRN ORAL Mild Pain (Pain Scale 1-3) 01/20/19 19:15 02/19/19 19:14 Bisacodyl (Dulcolax) 10 mg HSPRN PRN RECTAL Constipation 01/20/19 19:15 02/19/19 19:14 Dextrose (Dextrose 50%) 25 ml Q30M PRN IV Hypoglycemia 01/20/19 19:15 02/19/19 19:14 Dextrose (Dextrose 50%) 50 ml Q30M PRN IV Hypoglycemia 01/20/19 19:15 02/19/19 19:14 Diphenhydramine HCl (Benadryl) 25 mg Q6H PRN ORAL Itching/Pruritis 01/20/19 19:15 02/19/19 19:14 01/21/19 09:21 Docusate Sodium (Colace) 100 mg EVERY 12 HOURS ORAL 01/20/19 21:00 02/19/19 20:59 Famotidine (Pepcid) 40 mg DAILY ORAL 01/21/19 09:00 02/20/19 08:59 01/21/19 09:21 Heparin Sodium (Porcine) (Heparin 5000 units/ml) 5,000 units EVERY 12 HOURS SUBQ 01/20/19 21:00 02/19/19 20:59 Hydromorphone HCl (Dilaudid) 1 mg Q6H PRN IVP Moderate Pain (Pain Scale 4-6) 01/20/19 19:15 01/27/19 19:14 Hydromorphone HCl (Dilaudid) 2 mg Q6H PRN IVP Severe Pain (Pain Scale 7-10) 01/20/19 19:15 01/27/19 19:14 Lorazepam (Ativan) 1 mg Q4H PRN ORAL For Anxiety 01/20/19 19:15 7/17/19 19:14 01/21/19 09:33 Magnesium Hydroxide (Mom) 30 ml HSPRN PRN ORAL Constipation 01/20/19 19:15 02/19/19 19:14 Meclizine HCl (Antivert) 25 mg STAT PRN ORAL for dizziness 01/20/19 14:45 02/19/19 14:44 01/20/19 15:22 Non-Formulary Medication (Non-Formulary Med) 1 ea DAILY ORAL 01/21/19 09:00 02/20/19 08:59 UNV Ondansetron HCl (Zofran) 4 mg Q6H PRN IVP Nausea & Vomiting 01/20/19 19:15 02/19/19 19:14 Oxcarbazepine (Trileptal) 600 mg BID@1400,2100 ORAL 01/20/19 21:00 02/19/19 20:59 01/20/19 21:13 Sodium Chloride 1,000 ml @ 75 mls/hr [id number] IV 01/20/19 22:45 02/19/19 22:44 01/20/19 22:54 Zolpidem Tartrate (Ambien) 5 mg HSPRN PRN ORAL Insomnia 01/20/19 19:15 01/27/19 19:14 GI: Plan Problems: (1) Nausea and vomiting in adult patient (2) Anxiety Plan Abdominal pelvic CT reviewed - Rectangular 7 x 4 mm densities, 2 of which seen in the distal esophagus, one in the small bowel. Most likely represent ingested tablets, but could also represent small ingested foreign bodies. Symptomatic treatment at this time Zofran as needed IV and p.o. hydration plus electrolyte correction Obtain urine toxicity Serial imaging if needed Advance diet as tolerated Follow labs Discussed with Dr. Mckeon. Thank you for this patient referral, we will follow. The patient was seen and examined at bedside and all new and available data was reviewed in the patients chart. I agree with the above findings, impression and plan. (Patient seen earlier today. Signature stamp does not reflect patient encounter time.). - MD Serene Mendez,[facility] [employer] Jan 21, 2019 11:04
--- NOTE | 2019-01-21 11:15 | NUR ---
NURSE NOTES: Dr SIDDIQUI notified about drug urine result, no new order to RN. Will continue to monitor.
[2019-01-21 11:55] VITALS: BP 113/62
--- NOTE | 2019-01-21 12:10 | NUR ---
NURSE NOTES: pt has D/C order, all discharge assessments and instructions done and pt verbally confirmed to understand all. pt is stable, V/S stable. pt asked RN to have the prescription, she refused me to send prescription to our pharmacy. pt is stable, V/S stable. iv access D/C. [facility] PROVIDED AMBULANCE FOR HER. PT LEFT HOSPITAL AT 1155.
--- NOTE | 2019-01-21 12:55 | NUR ---
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 NAUSEA AND VOMITING VS: BP 134/69, P 100, T 97.0, RR 18, SpO2 97 Na 133, UR: Protein 1+, Ketones 3+, Blood 5+ IS:REGLAN 10mg IM ANTIVERT 25mg VALIUM 10mg NS x1L IV ZOFRAN 4mg IVP ADMITTED TO MED/SURG DCP: RETURN HOME
--- NOTE | 2019-01-21 20:26 | Neurology Progress Note ---
Interim History Interim History ROS Limited/Unobtainable: No Interim History feeling better Objective Physical Exam Last Vital Signs Date Time Temp Pulse Resp B/P (MAP) Pulse Ox O2 Delivery O2 Flow Rate FiO2 01/21/19 11:55 98.9 74 17 113/62 (79) 99 01/21/19 09:00 Room Air Laboratory Tests Test 01/21/19 05:43 01/21/19 10:30 White Blood Count 6.8 K/UL (4.8-10.8) Red Blood Count 4.25 M/UL (4.20-5.40) Hemoglobin 12.9 G/DL (12.0-16.0) Hematocrit 38.2 % (37.0-47.0) Mean Corpuscular Volume 90 FL (80-99) Mean Corpuscular Hemoglobin 30.3 PG (27.0-31.0) Mean Corpuscular Hemoglobin Concent 33.7 G/DL (32.0-36.0) Red Cell Distribution Width 12.9 % (11.6-14.8) Platelet Count 316 K/UL (150-450) Mean Platelet Volume 7.2 FL (6.5-10.1) Neutrophils (%) (Auto) 60.5 % (45.0-75.0) Lymphocytes (%) (Auto) 29.2 % (20.0-45.0) Monocytes (%) (Auto) 6.9 % (1.0-10.0) Eosinophils (%) (Auto) 1.8 % (0.0-3.0) Basophils (%) (Auto) 1.6 % (0.0-2.0) Sodium Level 139 MMOL/L (136-145) Potassium Level 3.1 MMOL/L (3.5-5.1) L Chloride Level 106 MMOL/L (98-107) Carbon Dioxide Level 25 MMOL/L (21-32) Anion Gap 8 mmol/L (5-15) Blood Urea Nitrogen 5 mg/dL (7-18) L Creatinine 0.7 MG/DL (0.55-1.30) Estimat Glomerular Filtration Rate > 60 mL/min (>60) Glucose Level 116 MG/DL (74-106) H Calcium Level 8.7 MG/DL (8.5-10.1) Total Bilirubin 0.3 MG/DL (0.2-1.0) Aspartate Amino Transf (AST/SGOT) 17 U/L (15-37) Alanine Aminotransferase (ALT/SGPT) 14 U/L (12-78) Alkaline Phosphatase 71 U/L (46-116) Total Protein 6.6 G/DL (6.4-8.2) Albumin 3.5 G/DL (3.4-5.0) Globulin 3.1 g/dL Albumin/Globulin Ratio 1.1 (1.0-2.7) Urine Opiates Screen Negative (NEGATIVE) Urine Barbiturates Screen Negative (NEGATIVE) Phencyclidine (PCP) Screen Negative (NEGATIVE) Urine Amphetamines Screen Positive (NEGATIVE) H Urine Benzodiazepines Screen Positive (NEGATIVE) H Urine Cocaine Screen Negative (NEGATIVE) Urine Marijuana (THC) Screen Positive (NEGATIVE) H General: well developed Head: normocophalic Neck: no rigidity EENT: benign Neurologic Exam Mental Status: awake, alert, oriented x4, normal cognition, good mathematical skills, normal recent memory, normal remote memory, preserved visuospatial function Speech: normal speech, no dysarthia Language: normal language, no aphasia Cranial Nerve II: fundus normal, visual osman, no papilledema Cranial Nerves III, IV, : PERRLA, EOMI, pupils Cranial Nerve V: normal facial sensations, temporales function normal, masseters function normal, pterygoids function normal Cranial Nerve VII: no facial asymmetry Cranial Nerve VIII: normal hearing Cranial Nerve IX: normal palate elevation, gag response Cranial Nerve X: no voice hoarseness Cranial Nerve XI: SCM symmetric, trapezii function normal Cranial Nerve XII: tongue midline, no tongue atrophy/fasciculations Motor System: normal muscle tone, strength 5/5, no involuntary movement, no muscle wasting Sensory: normal pinprick, normal light touch, normal position sense, normal graphesthesia Coordination: normal finger to nose bilaterally, normal heel to maldonado bilaterally, negative Romberg test Impression/Recommendations Problems: (1) Anxiety (2) Nausea and vomiting in adult patient (3) Bronchitis Diagnostic Impression encephalopathy due to intoxication no red flags for further founder and chief technical officer imaging Osmar Allen MD Jan 21, 2019 20:26
--- NOTE | 2019-01-24 13:49 | NUR ---
CASE MANAGEMENT: CM review and clinical information (face sheet/ ER MD notes/ H&P) faxed to [facility] @ [phone].
== END 2019-01-21 11:55 | disposition home or self-care (01) | DRG 249 ==
LOC: EDBD 11:20 → EMR 12:04 → 4E 16:10 → EDBEDREQ 16:49
DX: R11.2 Nausea with vomiting, unspecified (principal); G92 Toxic encephalopathy; E87.1 Hypo-osmolality and hyponatremia; F19.10 Other psychoactive substance abuse, uncomplicated; F31.9 Bipolar disorder, unspecified; F41.9 Anxiety disorder, unspecified; J40 Bronchitis, not specified as acute or chronic
CPT/HCPCS: 36415; 70450; 74176; 80053; 80307; 80329; 81003; 81025; 83690; 84702; 85007; 85025; 87081; 96361; 96365; 96372; 96375; 99285; J2405; J2765; J8499

== ENCOUNTER 2019-01-23 13:17 | Emergency (ER) | payer OTHER ==
[~2019-01-23] VITALS: Ht 157.5 cm; Wt 59.0 kg
[~2019-01-23 13:17] MED LIST changes: +ZOFRAN ODT8 MG ORAL
[2019-01-23 13:29] VITALS: BP 106/71
--- NOTE | 2019-01-23 13:39 | NUR ---
ED Nurse Note: pt brought in by ambulance from [facility], [place] due to N/V (clear fluids), epigastric pain and dizziness;pt denies drug use. . [facility]
[2019-01-23 14:06] LABS: BASOPHILS % (AUTO) 1.4 % (0.0-2.0); EOSINOPHILS % (AUTO) 1.5 % (0.0-3.0); HEMATOCRIT 47.1 % (37.0-47.0); HEMOGLOBIN 15.6 G/DL (12.0-16.0); LYMPHOCYTES % (AUTO) 18.6 % (20.0-45.0); MEAN CORPUSCULAR VOLUME 90 FL (80-99); MONOCYTES % (AUTO) 4.5 % (1.0-10.0); NEUTROPHILS % (AUTO) 73.9 % (45.0-75.0); PLATELET COUNT 366 K/UL (150-450); RED BLOOD COUNT 5.22 M/UL (4.20-5.40); RED CELL DISTRIBUTION WIDTH 13.1 % (11.6-14.8); WHITE BLOOD COUNT 8.7 K/UL (4.8-10.8)
[2019-01-23 14:10] LABS: APPEARANCE,URINE CLEAR; BILIRUBIN, URINE NEGATIVE (NEGATIVE); GLUCOSE, URINE (UA) NEGATIVE (NEGATIVE); KETONES,URINE 2+ (NEGATIVE); LEUKOCYTE ESTERASE ,URINE 2+ (NEGATIVE); NITRITE,URINE NEGATIVE (NEGATIVE); PH,URINE 7 (4.5-8.0); PROTEIN,URINE 2+ (NEGATIVE); UROBILINOGEN,URINE 1 MG/DL (0.0-1.0)
[2019-01-23 14:14] LABS: COLOR,URINE YELLOW
--- NOTE | 2019-01-23 14:34 | Emergency Room Report ---
History of Present Illness General Chief Complaint: Vomiting Source: EMS (Carmen Sanchez) Present Illness HPI 28-year-old female with extensive history of methamphetamine abuse and anxiety has already been here multiple times repeatedly asking for Xanax and complaining of anxiety denying having any problem, brought in by paramedics complaining of headache, dizziness, and multiple bouts of vomiting 2 days ago. Patient reports that she has been hydrating however denies using any drugs and saying she has not used any methamphetamine for many weeks, has been taking Adderall for ADHD and Trileptal however has not had any other new medication. (Carmen Sanchez) Allergies: Coded Allergies: No Known Allergies (Unverified , 05/09/18) Patient History Past Medical History: see triage record Past Surgical History: unable to obtain Pertinent Family History: unable to obtain Social History: Reports: drug use - methamphetamine Last Menstrual Period: 3 weeks ago Now: No Immunizations: UTD Reviewed Nursing Documentation: PMH: Agreed; PSxH: Agreed (Carmen Sanchez) Nursing Documentation-PMH Past Medical History: No History, Except For Hx Cardiac Problems: No - substance abuse Hx Cancer: No Hx Gastrointestinal Problems: No History Of Psychiatric Problem: Yes Hx Neurological Problems: Yes - 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 (Carmen Sanchez) Review of Systems All Other Systems: negative except mentioned in HPI (Carmen Sanchez) Physical Exam Vital Signs Date Time Temp Pulse Resp B/P (MAP) Pulse Ox O2 Delivery O2 Flow Rate FiO2 01/23/19 13:21 97.7 82 16 106/71 (83) 100 Room Air Sp02 EP Interpretation: reviewed, normal General Appearance: alert, GCS 15, non-toxic, mild distress Eyes: bilateral eye normal inspection, bilateral eye PERRL ENT: normal ENT inspection, normal pharynx, normal voice Neck: normal inspection, full range of motion, supple Respiratory: normal inspection, chest non-tender, lungs clear, no rhonchi, no wheezing Cardiovascular #1: normal inspection, regular rate, rhythm, no edema, no gallop , no murmur Gastrointestinal: normal inspection, non tender, soft, no mass, no peritonitis , no bruit, no guarding Genitourinary: no CVA tenderness Musculoskeletal: normal inspection, back normal, digits/nails normal Neurologic: normal inspection, alert, oriented x3, responsive Psychiatric: normal inspection, judgement/insight normal Skin: no rash, palpation normal, normal color, normal turgor Lymphatic: normal inspection, no adenopathy (Carmen Sanchez) Medical Decision Making PA Attestation Diagnosis and treatment plans were reviewed and discussed with my supervising physician Dr. Gilliland (Carmen Sanchez) Medicare Attestation I saw and evaluated the patient and discussed the care with Carmen CAVAZOS on 01/23/2019. I agree with the findings and plan as documented in the note. (Osmar Gilliland M.D.) Diagnostic Impression: Primary Impression: Vomiting Additional Impressions: Amphetamine abuse Anxiety ER Course 28-year-old female with extensive history of methamphetamine abuse and anxiety has already been here multiple times repeatedly asking for Xanax and complaining of anxiety denying having any problem, brought in by paramedics complaining of headache, dizziness, and multiple bouts of vomiting 2 days ago. Patient reports that she has been hydrating however denies using any drugs and saying she has not used any methamphetamine for many weeks, has been taking Adderall for ADHD and Trileptal however has not had any other new medication. Ddx considered but are not limited to: generalized anxiety disorder, panic attack, depression with psycotic featurs, bipolar disorder, drug overdose , nausea vomiting secondary to drug use, viral gastroenteritis, acute abdominal pain Vital signs: are WNL, pt. is afebrile H&PE are most consistent with: Nausea vomiting secondary to drug use, vitamin use, benzodiazepine abuse, anxiety ORDERS: CBC, CMP, UA, urine tox screen, urine test, NS bolus, Zofran, EKG ED INTERVENTIONS: NS bolus, Zofran DISCHARGE: At this time pt. is stable for d/c to home. Will provide printed patient care instructions, and any necessary prescriptions. Care plan and follow up instructions have been discussed with the patient prior to discharge. Patient decided to be discharged prior to results of CBC and CMP being back. Patient to follow-up with her primary care provider and psychiatrist for anxiety I advised her to stop using methamphetamine and benzodiazepines However patient has been here multiple times and denies that she has a psychiatric disorder and refuses to see psychiatrist denies SI and HI at time of discharge. Urine tox screen positive for benzodiazepines, THC, amphetamine (Carmen Sanchez) EKG Diagnostic Results Rate: normal Rhythm: NSR ST Segments: no acute changes (Carmen Sanchez) Last Vital Signs Date Time Temp Pulse Resp B/P (MAP) Pulse Ox O2 Delivery O2 Flow Rate FiO2 01/23/19 13:29 82 16 Room Air 01/23/19 13:29 97.7 106/71 100 (Carmen Sanchez) Disposition: HOME, SELF-CARE Condition: Stable Scripts Ondansetron (Zofran) 4 Mg Tablet 4 MG ORAL Q6H PRN for Nausea & Vomiting, #10 TAB Prov: Carmen Sanchez 01/23/19 Referrals: NON PHYSICIAN (PCP) Patient Instructions: Nausea and Vomiting, Adult Additional Instructions: Increase oral hydration follow-up with her primary care provider and psychiatrist avoid using methamphetamine. Carmen Sanchez Jan 23, 2019 14:34 Osmar Gilliland M.D. Jan 24, 2019 11:39
[2019-01-23] MEDS ORDERED: ZOFRAN4 M1 ORAL (14:52)
[2019-01-23 15:08] VITALS: BP 108/76
--- NOTE | 2019-01-23 15:11 | NUR ---
ED Nurse Note: Pt cleared by health care Provider for discharge. DC instructions/prescription was given and explained to pt and verbalized understanding of teachings. All medical deviecs such as ID band removed. Pt is AAO x4, ambulatory and left with all personal belongings.
[2019-01-23 15:28] LABS: ANION GAP 11 mmol/L (5-15); BLOOD UREA NITROGEN 8 mg/dL (7-18); CALCIUM 8.6 MG/DL (8.5-10.1); CARBON DIOXIDE 27 MMOL/L (21-32); CHLORIDE 99 MMOL/L (98-107); CREATININE 0.7 MG/DL (0.55-1.30); POTASSIUM 3.2 MMOL/L (3.5-5.1); SODIUM 137 MMOL/L (136-145)
[2019-01-23 15:32] LABS: ALANINE AMINOTRANSFERASE 12 U/L (12-78); ALBUMIN 4.5 G/DL (3.4-5.0); ALBUMIN/GLOBULIN RATIO 1.7 (1.0-2.7); ALKALINE PHOSPHATASE 62 U/L (46-116); ASPARTATE AMINO TRANSFERASE 18 U/L (15-37); BILIRUBIN,TOTAL 0.3 MG/DL (0.2-1.0); CREATINE KINASE 81 U/L (26-308)
--- NOTE | 2019-01-25 11:41 | NUR ---
*-* INSURANCE *-* ALL CLINICALS AND REVIEWS HAVE BEEN FAXED TO: ANGELINA ALBRIGHT F:[phone] REF# [id number]
== END 2019-01-23 15:12 | disposition home or self-care (01) ==
LOC: EDBD 13:17 → EMR 13:42
DX: F41.9 Anxiety disorder, unspecified (principal); R11.10 Vomiting, unspecified; F15.10 Other stimulant abuse, uncomplicated
CPT/HCPCS: 36415; 80053; 80307; 80329; 81001; 81025; 82550; 85025; 87086; 93005; 96361; 96374; 99284; J2405

== ENCOUNTER 2019-01-28 17:36 | Emergency (ER) | payer OTHER ==
[~2019-01-28] VITALS: Ht 160 cm; Wt 52.2 kg
[~2019-01-28 17:36] MED LIST changes: +ZOFRAN4 M1 ORAL
[2019-01-28 17:52] VITALS: BP 124/82
--- NOTE | 2019-01-28 17:53 | NUR ---
ED Nurse Note: states i took my sleeping pills and i still cant sleep. i almost fall asleep and then startle myself awake. states " i worry too much to sleep" patient states that she took an unknown of pills however took them at around 9pm last night. patient is alert and oriented x4, ambulatory with a steady gait, VSS
[2019-01-28 18:03] LABS: APPEARANCE,URINE CLEAR; BILIRUBIN, URINE NEGATIVE (NEGATIVE); COLOR,URINE PALE YELLOW; GLUCOSE, URINE (UA) NEGATIVE (NEGATIVE); KETONES,URINE NEGATIVE (NEGATIVE); LEUKOCYTE ESTERASE ,URINE 1+ (NEGATIVE); NITRITE,URINE NEGATIVE (NEGATIVE); PH,URINE 6 (4.5-8.0); PROTEIN,URINE NEGATIVE (NEGATIVE); UROBILINOGEN,URINE NORMAL MG/DL (0.0-1.0)
--- NOTE | 2019-01-28 18:34 | Emergency Room Report ---
History of Present Illness General Chief Complaint: Behavioral Complaint Source: Patient Present Illness HPI 28-year-old female with significant history of amphetamine use as well as anxiety who has been here previously multiple times for same symptoms here complaining of worsening anxiety. Patient is currently under the care of her psychiatrist however based on her prescription bottle as well as cures patient gets 1 week supply of Ativan and when her Ativan finishes patient comes to the emergency room. Denies suicidal and homicidal ideation. Denies chest pain, sense of breath, palpitation, abdominal pain, nausea vomiting, headache and dizziness. Patient reports that she cannot area patient is asked multiple times whether she wants to be transferred to psychiatric facility patient keeps repeating that she has this under control and wants to do it by herself and does not want to go inside a psychiatric facility. Denies any recent drug use however when confronted about her positive amphetamine status in her urine she states that she used 2 lines of methamphetamine yesterday. Patient reports that that is not too much amphetamine and it is less than which she used to use. Patient is in denial of her substance abuse and her jerking movements secondary to her substance abuse. Denies SI and HI at this time. Allergies: Coded Allergies: No Known Allergies (Unverified , 05/09/18) Patient History Past Medical History: see triage record Past Surgical History: unable to obtain Pertinent Family History: unable to obtain Social History: Reports: drug use - metamphetamine Last Menstrual Period: unk Now: No Immunizations: UTD Reviewed Nursing Documentation: PMH: Agreed; PSxH: Agreed Nursing Documentation-PMH Past Medical History: No History, Except For Hx Cardiac Problems: No - substance abuse Hx Cancer: No Hx Gastrointestinal Problems: No History Of Psychiatric Problem: Yes - substance abuse, anxiety Hx Neurological Problems: Yes - 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 Review of Systems All Other Systems: negative except mentioned in HPI Physical Exam Vital Signs Date Time Temp Pulse Resp B/P (MAP) Pulse Ox O2 Delivery O2 Flow Rate FiO2 01/28/19 17:47 97.5 89 18 124/82 (96) 99 Room Air Sp02 EP Interpretation: reviewed, normal General Appearance: normal inspection, well appearing, no apparent distress, alert, GCS 15 Head: normocephalic, atraumatic Eyes: bilateral eye normal inspection, bilateral eye PERRL ENT: hearing grossly normal, normal pharynx, normal voice, other - Jerking movements of mouth secondary to substance abuse Neck: normal inspection, full range of motion, supple, thyroid normal, no meningismus, no bony tend Respiratory: normal inspection, chest non-tender, lungs clear, normal breath sounds, no rhonchi, no respiratory distress, no wheezing Cardiovascular #1: normal inspection, regular rate, rhythm, no edema, no gallop , no murmur, normal capillary refill Cardiovascular #2: 2+ radial (R), 2+ radial (L) Gastrointestinal: normal inspection, non tender, soft Rectal: deferred Genitourinary: no CVA tenderness Musculoskeletal: normal inspection, back normal, digits/nails normal Neurologic: normal inspection, alert, oriented x3 Psychiatric: memory normal, no suicidal/homicidal ideation, anxious Skin: no rash, normal color Lymphatic: normal inspection, no adenopathy Medical Decision Making PA Attestation Diagnosis and treatment plans were reviewed and discussed with my supervising physician Dr. Gilliland Diagnostic Impression: Primary Impression: Anxiety Additional Impression: Methamphetamine use ER Course 28-year-old female with significant history of amphetamine use as well as anxiety who has been here previously multiple times for same symptoms here complaining of worsening anxiety. Patient is currently under the care of her psychiatrist however based on her prescription bottle as well as cures patient gets 1 week supply of Ativan and when her Ativan finishes patient comes to the emergency room. Denies suicidal and homicidal ideation. Denies chest pain, sense of breath, palpitation, abdominal pain, nausea vomiting, headache and dizziness. Patient reports that she cannot area patient is asked multiple times whether she wants to be transferred to psychiatric facility patient keeps repeating that she has this under control and wants to do it by herself and does not want to go inside a psychiatric facility. Denies any recent drug use however when confronted about her positive amphetamine status in her urine she states that she used 2 lines of methamphetamine yesterday. Patient reports that that is not too much amphetamine and it is less than which she used to use. Patient is in denial of her substance abuse and her jerking movements secondary to her substance abuse. Denies SI and HI at this time. Ddx considered but are not limited to: generalized anxiety disorder, panic attack, depression with psycotic featurs, bipolar disorder, drug overdose Vital signs: are WNL, pt. is afebrile H&PE are most consistent with: Methamphetamine use and anxiety ORDERS: Urine tox screen, EKG ED INTERVENTIONS: None required at this time. DISCHARGE: At this time pt. is stable for d/c to home. Will provide printed patient care instructions, and any necessary prescriptions. Care plan and follow up instructions have been discussed with the patient prior to discharge. Patient denies that she has a psychiatric disorder and refuses to be given a list of psychiatric facilities or to be transferred to an inpatient psychiatric facility at this time patient denies any suicidal homicidal ideation. Reports that she is meeting with her psychiatrist tomorrow. Patient is asking if it is okay for her to take another Xanax I recommend her not to. Patient called her psychiatrist and asked her psychiatrist however decides to leave immediately without getting her discharge papers and saying that she feels tired and wants to go home. Patient stable at time of discharge. Urine positive for amphetamine and benzodiazepines EKG Diagnostic Results Rate: normal Rhythm: NSR ST Segments: no acute changes Last Vital Signs Date Time Temp Pulse Resp B/P (MAP) Pulse Ox O2 Delivery O2 Flow Rate FiO2 01/28/19 17:47 97.5 89 18 124/82 (96) 99 Room Air Disposition: HOME, SELF-CARE Condition: Stable Patient Instructions: Generalized Anxiety Disorder, Stimulant Use Disorder- Amphetamines Carmen Sanchez Jan 28, 2019 18:34
[2019-01-28 19:00] VITALS: BP 122/80
== END 2019-01-28 19:00 | disposition home or self-care (01) ==
LOC: EMR 17:55
DX: F41.9 Anxiety disorder, unspecified (principal); F15.10 Other stimulant abuse, uncomplicated
CPT/HCPCS: 80307; 81001; 93005; 99284

== ENCOUNTER 2019-01-31 05:39 | Emergency (ER) | payer OTHER ==
[~2019-01-31] VITALS: Ht 160 cm; Wt 52.6 kg
--- NOTE | 2019-01-31 05:49 | NUR ---
ARTURO is here.
[2019-01-31] MEDS ORDERED: LORazepam 1mg tab ORAL ONE (06:00)
[2019-01-31 06:02] VITALS: BP 116/76
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
[2019-01-31 07:02] VITALS: BP 116/76
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
== END 2019-01-31 07:03 | disposition home or self-care (01) ==
LOC: EDBD 05:39 → EMR 06:08
DX: F41.9 Anxiety disorder, unspecified (principal); F31.9 Bipolar disorder, unspecified
CPT/HCPCS: 99283

== ENCOUNTER 2019-01-31 07:46 | Emergency (ER) | payer OTHER ==
[~2019-01-31] VITALS: Ht 160 cm; Wt 52.6 kg
[2019-01-31] MEDS ORDERED: LORazepam 1mg tab ORAL ONE (08:00)
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
--- NOTE | 2019-01-31 08:06 | NUR ---
ED Nurse Note: officer leonel [id number] and officer jason [id number] brought the pt in the ed. stated that the pt is not under custody
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
[2019-01-31 08:21] VITALS: BP 154/89
--- NOTE | 2019-01-31 08:30 | NUR ---
ED Nurse Note: pt unable to give urine as of the moment. ermd made aware.
[2019-01-31] MEDS ORDERED: DiphenhydrAMINE 50mg/ml Inj IM ONE (09:15)
--- NOTE | 2019-01-31 09:27 | NUR ---
ED Nurse Note: pt unable to relax, looks very anxious and paranoid. ermd made aware and ordered haldol and benadryl IM and carried out. pt able to tolerate. will continue to monitor.
[2019-01-31] MEDS ORDERED: Haloperidol 5mg/ml Inj IM ONE (09:30)
--- NOTE | 2019-01-31 11:00 | NUR ---
ED Nurse Note: pt is sleeping on gurney, with respiration equal and unlabored. will continue to monitor.
--- NOTE | 2019-01-31 12:00 | NUR ---
ED Nurse Note: lunch provided and pt able to eat the soup. sandwich provided and water. pt assessed on gait and able to walk steadily without assistance. pt vss. will continue to monitor.
[2019-01-31 12:11] VITALS: BP 106/73
[2019-01-31] MEDS ORDERED: Ammonia Inhalant 0.33mL 1 Amp INH ONE ×2 (12:30)
[2019-01-31 12:35] VITALS: BP 106/73
--- NOTE | 2019-02-01 21:05 | Cardiology Report ---
APPROVED REPORT EKG Measurement Heart [id number] Sinus tachycardia Otherwise normal ECG
== END 2019-01-31 12:35 | disposition home or self-care (01) ==
LOC: EMR 08:20
DX: F41.9 Anxiety disorder, unspecified (principal); F60.9 Personality disorder, unspecified; F19.10 Other psychoactive substance abuse, uncomplicated; R07.9 Chest pain, unspecified; R00.2 Palpitations; R00.0 Tachycardia, unspecified
CPT/HCPCS: 93005; 96372; 99284; J1200; J1630

== ENCOUNTER 2019-02-01 20:57 | Emergency (ER) | payer OTHER ==
[~2019-02-01] VITALS: Ht 160 cm; Wt 52.6 kg
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
[2019-02-01 21:05] VITALS: BP 130/80
[2019-02-01 21:08] VITALS: BP 130/80
--- NOTE | 2019-02-01 21:10 | NUR ---
ER DISCHARGE NOTE: Patient is cleared to be discharged per ERMD, pt is aox4, on room air, with stable vital signs. pt was given dc instructions and drug rehab referrals, pt was able to verbalize understanding, pt id band aremoved. pt is able to ambulate with steady gait. pt took all belongings.
[2019-02-02] MEDS ORDERED: NKM (19:24)
== END 2019-02-01 21:10 | disposition home or self-care (01) ==
LOC: EDUNIT# 20:57 → EDBD 20:57 → EMR 21:10
DX: F19.10 Other psychoactive substance abuse, uncomplicated (principal); F41.9 Anxiety disorder, unspecified
CPT/HCPCS: 99283

== ENCOUNTER 2019-02-02 19:12 | Emergency (ER) | payer OTHER ==
[~2019-02-02] VITALS: Ht 162.6 cm; Wt 56.7 kg
[2019-02-02] MEDS ORDERED: NKM (19:24)
[2019-02-02 19:25] VITALS: BP 116/80
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
--- NOTE | 2019-02-02 19:31 | Emergency Room Report ---
History of Present Illness General Chief Complaint: Substance Abuse Source: Patient Present Illness HPI 28-year-old female with history of anxiety and methamphetamine abuse who has been here to [facility] multiple times and consequent days complaining of anxiety and requesting IV Ativan here complaining of a panic attack and requesting oxygen. Patient refuses that she has amphetamine use disorder and sees her psychiatrist once a week and given Xanax for 7-day supply each week. Patient does not want to go to a psychiatric facility complains of chest pain and palpitation. Patient is ambulatory and in no apparent distress. Patient is asking for oxygen however her vital signs are within normal limits. Patient denies any amphetamine use. Was recently seen here yesterday and the day before yesterday several times. 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 Review of Systems All Other Systems: negative except mentioned in HPI Physical Exam Vital Signs Date Time Temp Pulse Resp B/P (MAP) Pulse Ox O2 Delivery O2 Flow Rate FiO2 02/02/19 19:16 97.5 115 26 116/80 (92) 99 Room Air Sp02 EP Interpretation: reviewed, normal General Appearance: mild distress Head: normocephalic, atraumatic Eyes: bilateral eye normal inspection, bilateral eye PERRL ENT: normal ENT inspection, hearing grossly normal Neck: normal inspection, full range of motion, supple Respiratory: normal inspection, lungs clear, no rhonchi, no wheezing Cardiovascular #1: normal inspection, normal peripheral pulses, regular rate, rhythm, no murmur, normal capillary refill Gastrointestinal: normal inspection, soft Rectal: deferred Genitourinary: no CVA tenderness Musculoskeletal: normal inspection, back normal Neurologic: normal inspection, alert, oriented x3 Psychiatric: normal inspection, judgement/insight normal Skin: no rash, palpation normal Lymphatic: normal inspection, no adenopathy Medical Decision Making PA Attestation All my diagnosis and treatment plans were reviewed ad discussed with my supervising physician Dr. Bellamy Diagnostic Impression: Primary Impression: Substance abuse Additional Impression: Anxiety ER Course 28-year-old female with history of anxiety and methamphetamine abuse who has been here to [facility] multiple times and consequent days complaining of anxiety and requesting IV Ativan here complaining of a panic attack and requesting oxygen. Patient refuses that she has amphetamine use disorder and sees her psychiatrist once a week and given Xanax for 7-day supply each week. Patient does not want to go to a psychiatric facility complains of chest pain and palpitation. Patient is ambulatory and in no apparent distress. Patient is asking for oxygen however her vital signs are within normal limits. Patient denies any amphetamine use. Was recently seen here yesterday and the day before yesterday several times. Ddx considered but are not limited to: generalized anxiety disorder, panic attack, depression with psycotic featurs, bipolar disorder, drug overdose Vital signs: are WNL, pt. is afebrile H&PE are most consistent with: Ddx considered but are not limited to: generalized anxiety disorder, panic attack, depression with psycotic featurs, bipolar disorder, drug overdose Vital signs: are WNL, pt. is afebrile H&PE are most consistent with: Anxiety and substance abuse ORDERS: EKG ED INTERVENTIONS: None required at this time. DISCHARGE: At this time pt. is stable for d/c to home. Will provide printed patient care instructions, and any necessary prescriptions. Care plan and follow up instructions have been discussed with the patient prior to discharge. Patient to follow-up with a psychiatrist. Patient stable at time of discharge. Patient refuses to be sent to psychiatric facility. EKG Diagnostic Results Rate: tachycardiac Rhythm: NSR ST Segments: no acute changes Other Impression Patient had excessive jerking movements to anxiety during doing EKG and heart rate shows as 101 and tachycardic and reading of EKG however otherwise normal and consistent with patient's presentation terms of having anxiety. Last Vital Signs Date Time Temp Pulse Resp B/P (MAP) Pulse Ox O2 Delivery O2 Flow Rate FiO2 02/02/19 19:16 97.5 115 26 116/80 (92) 99 Room Air Disposition: HOME, SELF-CARE Condition: Stable Patient Instructions: Stimulant Use Disorder-Methamphetamines, Substance Use Disorder Sahelimoghavami,Nahal PA Feb 02, 2019 19:31
[2019-02-02 19:55] VITALS: BP 116/80
--- NOTE | 2019-02-03 15:20 | Cardiology Report ---
APPROVED REPORT EKG Measurement Heart [id number] Sinus tachycardia Nonspecific T wave abnormality Abnormal ECG
== END 2019-02-02 19:55 | disposition home or self-care (01) ==
LOC: EMR 19:30
DX: F19.10 Other psychoactive substance abuse, uncomplicated (principal); F41.9 Anxiety disorder, unspecified; R00.0 Tachycardia, unspecified
CPT/HCPCS: 93005; 99282

== ENCOUNTER 2019-02-15 14:57 | Emergency (ER) | payer OTHER ==
[~2019-02-15] VITALS: Ht 157.5 cm; Wt 45.4 kg
--- NOTE | 2019-02-15 15:05 | NUR ---
ED Nurse Note: Patient brought in by ambulance form doctor's office, presented with anxiety. patient states that she wants to go to pharmacy to fill the prescription for her anxiety.
--- NOTE | 2019-02-15 15:06 | NUR ---
ED Nurse Note: patient is alert awake x4 ambulatory steady gait. breathing unlabored and even.
--- NOTE | 2019-02-15 15:15 | Emergency Room Report ---
History of Present Illness General Chief Complaint: General Complaint Source: Medical Record Present Illness HPI 28-year-old female with history of anxiety and methamphetamine abuse brought in by the paramedics after she had an anxiety attack in her psychiatrist's office today. Patient is currently taking Xanax, and has extensive history of daily use of methamphetamine. Patient herself reports that she told the paramedics that she wants to go to the pharmacy to fill out her prescription for Xanax however the paramedics brought her here to the emergency room. At this time patient has no complaint denies any chest pain, shortness of breath, any SI or HI. Patient is ambulatory and wants to leave and go to the pharmacy. 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 Review of Systems All Other Systems: negative except mentioned in HPI Physical Exam Vital Signs Date Time Temp Pulse Resp B/P (MAP) Pulse Ox O2 Delivery O2 Flow Rate FiO2 02/15/19 15:04 98.1 66 18 105/66 (79) 98 Room Air Sp02 EP Interpretation: reviewed, normal General Appearance: normal inspection, well appearing, no apparent distress, alert Head: normocephalic, atraumatic Eyes: bilateral eye normal inspection, bilateral eye PERRL ENT: normal ENT inspection, hearing grossly normal Neck: normal inspection, full range of motion, supple Respiratory: normal inspection, chest non-tender, lungs clear Cardiovascular #1: normal inspection, normal peripheral pulses, regular rate, rhythm, no edema, no murmur Gastrointestinal: normal inspection, non tender, soft Genitourinary: no CVA tenderness Neurologic: normal inspection, alert Psychiatric: normal inspection, judgement/insight normal, no suicidal/ homicidal ideation Skin: normal color Lymphatic: normal inspection, no adenopathy Medical Decision Making PA Attestation All diagnoses and treatment plans were reviewed and discussed with my supervising physician Dr. Stanford Diagnostic Impression: Primary Impression: Anxiety ER Course 28-year-old female with history of anxiety and methamphetamine abuse brought in by the paramedics after she had an anxiety attack in her psychiatrist's office today. Patient is currently taking Xanax, and has extensive history of daily use of methamphetamine. Patient herself reports that she told the paramedics that she wants to go to the pharmacy to fill out her prescription for Xanax however the paramedics brought her here to the emergency room. At this time patient has no complaint denies any chest pain, shortness of breath, any SI or HI. Patient is ambulatory and wants to leave and go to the pharmacy. Ddx considered but are not limited to: generalized anxiety disorder, panic attack, depression with psycotic featurs, bipolar disorder, drug overdose Vital signs: are WNL, pt. is afebrile H&PE are most consistent with: Anxiety ORDERS: none required at this time, the diagnosis is clinical ED INTERVENTIONS: None required at this time. DISCHARGE: At this time pt. is stable for d/c to home. Will provide printed patient care instructions, and any necessary prescriptions. Care plan and follow up instructions have been discussed with the patient prior to discharge. Last Vital Signs Date Time Temp Pulse Resp B/P (MAP) Pulse Ox O2 Delivery O2 Flow Rate FiO2 02/15/19 15:04 98.1 66 18 105/66 (79) 98 Room Air Disposition: HOME, SELF-CARE Condition: Stable Patient Instructions: Generalized Anxiety Disorder Carmen Sanchez Feb 15, 2019 15:15
[2019-02-15 15:20] VITALS: BP 105/66
--- NOTE | 2019-02-15 15:22 | NUR ---
DISCHARGED HOME WITH INSTRUCTION AND RX FOLLOW UP WITH PMD
== END 2019-02-15 15:16 | disposition home or self-care (01) ==
LOC: EDBD 14:57 → EMR 15:15
DX: F41.9 Anxiety disorder, unspecified (principal); F15.10 Other stimulant abuse, uncomplicated; Z86.03 Personal history of neoplasm of uncertain behavior
CPT/HCPCS: 99282

== ENCOUNTER 2019-02-24 19:21 | Emergency (ER) | payer OTHER ==
[~2019-02-24] VITALS: Ht 160 cm; Wt 49.9 kg
--- NOTE | 2019-02-24 19:23 | NUR ---
ED Nurse Note: TORSTEN BROWN 827 D/T BEHAVIORAL COMPLAINT. Pt is AO x 4times, VSS, on room air no distress. ERMD seen Pt at bedside.
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
[2019-02-24 20:02] VITALS: BP 108/66
[2019-02-24 20:06] VITALS: BP 108/66
== END 2019-02-24 20:07 | disposition home or self-care (01) ==
LOC: EDBD 19:21 → EMR 19:37
DX: R00.2 Palpitations (principal); F41.9 Anxiety disorder, unspecified; F31.9 Bipolar disorder, unspecified
CPT/HCPCS: 93005; 99283

== ENCOUNTER 2019-07-26 18:55 | Emergency (ER) | payer OTHER ==
[~2019-07-26] VITALS: Ht 162.6 cm; Wt 49.9 kg
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
[2019-07-26 19:02] VITALS: BP 123/73
--- NOTE | 2019-07-26 19:10 | NUR ---
ED Nurse Note: Pt has psych history of bipolar
--- NOTE | 2019-07-26 19:14 | NUR ---
HAND-OFF: Report given to FLORENCIA Isaacs. Pt in stable condition; plan of care endorsed.
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
[2019-07-26] MEDS ORDERED: TRIAMCINOLONE A15 G1 TP (19:27)
[2019-07-26 19:30] VITALS: BP 123/73
--- NOTE | 2019-07-26 19:30 | NUR ---
ER DISCHARGE NOTE: Patient is cleared to be discharged per ERMD, pt is aox4, on room air, with stable vital signs. pt was given dc and prescription instructions, pt was able to verbalize understanding of teachings. pt id band removed without complications. pt is able to ambulate with steady gait. pt took all belongings.
== END 2019-07-26 19:30 | disposition home or self-care (01) ==
LOC: EDBD 18:55 → EMR 19:25
DX: F41.9 Anxiety disorder, unspecified (principal); L30.9 Dermatitis, unspecified
CPT/HCPCS: 80307; 81025; Z7502; 99282

== ENCOUNTER 2020-06-05 11:44 | Emergency (ER) | payer OTHER ==
[~2020-06-05] VITALS: Ht 165.1 cm; Wt 61.2 kg
[~2020-06-05 11:44] MED LIST changes: +ABILIFY20 MG ORAL; +AMPHETAMINE SUL10 MG PO; +ATIVAN1 MG ORAL; +ISENTRESS25 MG ORAL; +TRIAMCINOLONE A15 G1 TP; +TRUVADA 200 MG1 EAC1 ORAL
[2020-06-05 12:45] VITALS: BP 119/79
--- NOTE | 2020-06-05 12:46 | NUR ---
ED Nurse Note: Patient was BIBA RA 858 from home due to anxiety attack. Patient AAO x4, VSS at this time
--- NOTE | 2020-06-05 13:10 | Emergency Room Report ---
History of Present Illness General Chief Complaint: General Complaint Source: Patient Present Illness HPI Disclaimer: Please note that this report is being documented using [employer] technology. This can lead to erroneous entry secondary to incorrect interpretation by the dictating instrument. HPI: 30-year-old female history of alcohol and substance abuse presents for evaluation of anxiety. States she is about to have an anxiety attack and has been feeling anxious for several years. She no longer follows up with psychiatry stating he retired. No new psychiatrist in the past several months. Patient denies chest pain, palpitations or shortness of breath at this time. She feels generally anxious most of the time. She states she is about to have a panic attack and that she had one earlier today but is feeling better after it. The patient was brought to the ER by EMS and then absconded for a while and then returned. She is asking specifically for IV anxiolytics. PMH: Substance abuse PSH: Reviewed Allergies: Reviewed Social Hx: History of alcohol and drug abuse Allergies: Coded Allergies: No Known Allergies (Unverified , 05/09/18) COVID-19 Screening Contact w/high risk pt: No Experienced COVID-19 symptoms?: No COVID-19 Testing performed [employer]OR: No Patient History Now: No Nursing Documentation-PMH Hx Cardiac Problems: No - substance abuse Hx Hypertension: No Hx Pacemaker: No Hx Asthma: No Hx COPD: No Hx Diabetes: No Hx Cancer: No Hx Gastrointestinal Problems: No Hx Dialysis: No History Of Psychiatric Problem: Yes Hx Neurological Problems: Yes - 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 EOMI. Cardiovascular: RRR. S1 and S2 normal. No murmur appreciated Resp: Normal work of breathing. Skin: Intact. No abrasions, laceration or rash over the exposed skin MSK: Normal tone and bulk. Moving all extremities. No obvious deformity. Neuro: Awake and alert. Mentating appropriately. Medical Decision Making Diagnostic Impression: Primary Impression: Anxiety ER Course Is a 30-year-old female history of alcohol and drug abuse presenting for evaluation of generalized anxiety. Vital signs are within normal limits and the patient appears comfortable. She is calm speaking to me but is requesting IV anxiety medications. Patient is then bargaining asking for prescriptions. I informed her that based on her vital signs and examination does not appear she is an acute life-threatening situation and can follow-up on an outpatient basis with psychiatry which we will provide resources for. Patient specifically st ates she needs IV pain medication or she will "have a panic attack" anytime now. Patient declined oral medication. She appears well and does not require emergent labs or imaging at this time in my opinion. She left from the ER prior to receiving discharge paperwork. Last Vital Signs Date Time Temp Pulse Resp B/P (MAP) Pulse Ox O2 Delivery O2 Flow Rate FiO2 06/05/20 11:39 98.2 73 18 119/79 (92) 99 Room Air Disposition: HOME, SELF-CARE Condition: Stable Referrals: Xiomara Chávez MD [facility] Wendy Lange Comp. [facility] Psych ER - Peds ER - [facility] Intake Hotline - [facility] - [facility] Patient Instructions: Panic Attacks Additional Instructions: Follow-up with one of the mental health resources listed here in your discharge paperwork to discuss your longstanding anxiety symptoms. Davy Stanford MD Jun 05, 2020 13:09
[2020-06-05 13:14] VITALS: BP 119/79
== END 2020-06-05 13:15 | disposition home or self-care (01) ==
LOC: EDBD 11:44 → EMR 13:00
DX: F41.9 Anxiety disorder, unspecified (principal)
CPT/HCPCS: 99281